=== PATIENT | male | born 1970 | race Caucasian/White ===

== ENCOUNTER 2021-12-07 06:52 | Inpatient (IN) | payer BC ==
[2021-12-06 12:56] LABS: BASOPHILS % 0.4 % (0.0-1.0); EOSINOPHILS # (AUTO) 0.7 (0.0-0.4); EOSINOPHILS % 8.7 % (0.0-6.0); HEMATOCRIT 24.5 % (38.2-49.6); HEMOGLOBIN 7.7 g/dL (14.0-18.0); LYMPHOCYTES # (AUTO) 1.4 (1.0-3.2); LYMPHOCYTES % 18.5 % (18.0-39.1); MEAN CORPUSCULAR HEMOGLOBIN 30.9 pg (28-32); MEAN CORPUSCULAR HGB CONC 31.4 g/dL (31-35); MEAN CORPUSCULAR VOLUME 98.4 fL (81-99); MONOCYTES # (AUTO) 0.8 (0.2-0.8); MONOCYTES % 10.4 % (4.4-11.3); NEUTROPHILS # (AUTO) 4.6 (2.1-6.9); NEUTROPHILS % 61.6 % (38.7-80.0); PLATELET COUNT 101 x10e3/uL (140-360); RED BLOOD COUNT 2.49 x10e6/uL (4.3-5.7); RED CELL DISTRIBUTION WIDTH 17.6 % (11.7-14.4)
[2021-12-06 13:05] LABS: INR 1.28; PARTIAL THROMBOPLASTIN TIME 42.6 seconds (23.8-35.5); PROTHROMBIN TIME 16.9 seconds (11.9-14.5)
[2021-12-06 13:11] LABS: ALBUMIN 2.6 g/dL (3.5-5.0); ALBUMIN/GLOBULIN RATIO 0.5 (0.8-2.0); CALCIUM 9.1 mg/dL (8.4-10.2); CREATININE, SERUM 1.32 mg/dL (0.72-1.25)
[~2021-12-07] VITALS: Ht 180.3 cm; Wt 66.2 kg
[~2021-12-07 06:52] MED LIST: CARAFATE1 GM PO; CARAFATE1 GM/10 ML PO; CEFUROXIME PO; CELECOXIB 200 MG CAP ONE; CIPRO500 MG PO; CRESTOR10 MG PO; DEXAMETHASONE SOD PHOS 10 MG/1 ML VIAL ONE; FUROSEMIDE40 MG PO; GABAPENTIN 300 MG CAP ONE; HYDROCODON-ACE1 EA12 PO; HYDROCODONE; KRISTALOSE20 GM PO; MIDODRINE HCL5 MG PO; OMEPRAZOLE40 MG PO; SODIUM CHLORIDE 0.9% 250ML 250 ML ONE; SPIRONOLACTONE25 MG PO; XIFAXAN550 MG PO; ZOLPIDEM TARTRAT5 MG PO
[2021-12-07] MEDS ORDERED: ROPIVACAINE 246.25 MG, EPINEPHRINE HCL 1:1000 1ML 0.5 MG, CLONIDINE HCL 0.08 MG, KETORO... INJ ONE ×5 (07:30)
[2021-12-07] MEDS ORDERED: TRANEXAMIC ACID 1,000 MG/10 ML ML ONE (10:14)
[2021-12-07] MEDS ORDERED: SODIUM CHLORIDE 0.9% 500ML 500 ML ONE (10:14)
[2021-12-07] MEDS ORDERED: Vancomycin IV 1,000 MG ONE (10:15)
[2021-12-07] MEDS ORDERED: DOCUSATE SODIUM 100 MG CAP PO PRN (12:15)
[2021-12-07] MEDS ORDERED: ONDANSETRON HCL INJ 2MG/ML 2ML 2 MG/ML VIAL IV PRN (12:15)
[2021-12-07] MEDS ORDERED: DIPHENHYDRAMINE HCL INJ 50 MG/ML VIAL IV PRN (12:15)
[2021-12-07] MEDS ORDERED: KETOROLAC TROMETHAMINE 30 MG/ML VIAL IV PRN (12:15)
[2021-12-07] MEDS ORDERED: HYDROCODONE/APAP 5MG-325MG TAB PO PRN (12:15)
[2021-12-07] MEDS ORDERED: LIDOCAINE HCL 2% LOCAL INJ 5 ML SDV VIAL INJ ONE (12:22)
[2021-12-07] MEDS ORDERED: GLYCOPYRROLATE INJ 0.2 MG/ML VIAL ONE (12:22)
[2021-12-07] MEDS ORDERED: POVIDONE IODINE 0.05% 0.05 % ML PO ONE (12:22)
[2021-12-07] MEDS ORDERED: PROPOFOL IV EMULSION 10 MG/ML 20 ML VIAL ONE (12:22)
[2021-12-07] MEDS ORDERED: ROCURONIUM BROMIDE 10 MG/ML 5ML VIAL IV ONE (12:22)
[2021-12-07] MEDS ORDERED: DESFLURANE 240 ML BTL INH ONE (12:22)
[2021-12-07] MEDS ORDERED: NEOSTIGMINE 1 MG/ML 10ML VIAL ONE (12:22)
[2021-12-07] MEDS ORDERED: ONDANSETRON HCL INJ 2MG/ML 2ML 2 MG/ML VIAL ONE (12:22)
[2021-12-07] MEDS ORDERED: DEXAMETHASONE SOD PHOS INJ 4 MG/ML SDV ONE (12:22)
[2021-12-07] MEDS ORDERED: SUGAMMADEX SODIUM 200 MG/2 ML VIAL IV ONE (12:28)
[2021-12-07] MEDS ORDERED: FENTANYL CITRATE/PF 100MCG/2 ML INJ ONE ×2 (12:42→13:32)
[2021-12-07] MEDS: HYDROCODONE/APAP 7.5MG-325MG 1 EA TAB PO PRN (14:14)
[2021-12-07 14:41] VITALS: BP 122/55
[2021-12-07 14:47] VITALS: BP 122/55
[2021-12-07] MEDS: SODIUM CHLORIDE 0.9% 1000ML 1,000 ML IV SCH (15:24)
[2021-12-07 15:54] VITALS: BP 102/46
[2021-12-07] MEDS: Cefazolin 1 GM in SODIUM CHLORIDE 0.9% 50ML 50 ML IV SCH (17:21)
[2021-12-07] MEDS: CELECOXIB 200 MG CAP PO SCH (17:21)
[2021-12-07 20:00] VITALS: BP 99/46
[2021-12-07] MEDS ORDERED: ZOLPIDEM TARTRATE 5 MG TAB PO PRN (21:00)
[2021-12-08] VITALS (7 sets, daily range): BP systolic 87–98; BP diastolic 41–49
[2021-12-08] MEDS: HYDROCODONE/APAP 7.5MG-325MG 1 EA TAB PO PRN (01:40)
[2021-12-08] MEDS: Cefazolin 1 GM in SODIUM CHLORIDE 0.9% 50ML 50 ML IV SCH ×2 (01:48→10:00)
[2021-12-08] MEDS: SODIUM CHLORIDE 0.9% 1000ML 1,000 ML IV SCH ×3 (03:32→20:50)
[2021-12-08 07:13] LABS: LYMPHOCYTES # (AUTO) 0.5 (1.0-3.2); LYMPHOCYTES % 5.5 % (18.0-39.1); MEAN CORPUSCULAR HEMOGLOBIN 30.4 pg (28-32); MEAN CORPUSCULAR HGB CONC 32.7 g/dL (31-35); MEAN CORPUSCULAR VOLUME 92.9 fL (81-99); MONOCYTES # (AUTO) 0.5 (0.2-0.8); NEUTROPHILS # (AUTO) 8.4 (2.1-6.9); NEUTROPHILS % 88.9 % (38.7-80.0); RED BLOOD COUNT 2.24 x10e6/uL (4.3-5.7)
[2021-12-08 07:24] LABS: HEMATOCRIT 20.8 % (38.2-49.6); HEMOGLOBIN 6.8 g/dL (14.0-18.0)
[2021-12-08 07:25] LABS: PLATELET COUNT 81 x10e3/uL (140-360)
[2021-12-08] MEDS: CELECOXIB 200 MG CAP PO SCH ×2 (09:00→17:00)
[2021-12-08] MEDS ORDERED: SODIUM CHLORIDE 0.9% 250ML 250 ML ONE ×2 (12:04→21:40)
[2021-12-08] MEDS ORDERED: ONDANSETRON HCL 4 MG ORAL DISINTEGRATING TAB PO PRN (14:15)
[2021-12-08] MEDS: ENOXAPARIN 30 MG/0.3 ML SYR SC SCH (17:00)
[2021-12-09] VITALS (8 sets, daily range): BP systolic 96–115; BP diastolic 50–56
[2021-12-09] MEDS: SODIUM CHLORIDE 0.9% 1000ML 1,000 ML IV SCH ×2 (05:09→15:45)
[2021-12-09 05:47] LABS: HEMATOCRIT 25.5 % (38.2-49.6); HEMOGLOBIN 8.5 g/dL (14.0-18.0)
[2021-12-09] MEDS: CELECOXIB 200 MG CAP PO SCH (09:10)
[2021-12-09 09:38] LABS: BASOPHILS % 0.1 % (0.0-1.0); HEMATOCRIT 24.8 % (38.2-49.6); HEMOGLOBIN 8.3 g/dL (14.0-18.0); LYMPHOCYTES # (AUTO) 0.8 (1.0-3.2); LYMPHOCYTES % 6.5 % (18.0-39.1); MEAN CORPUSCULAR HEMOGLOBIN 30.6 pg (28-32); MEAN CORPUSCULAR HGB CONC 33.5 g/dL (31-35); MEAN CORPUSCULAR VOLUME 91.5 fL (81-99); MONOCYTES % 8.2 % (4.4-11.3); NEUTROPHILS % 84.9 % (38.7-80.0); PLATELET COUNT 71 x10e3/uL (140-360); RED BLOOD COUNT 2.71 x10e6/uL (4.3-5.7); RED CELL DISTRIBUTION WIDTH 16.9 % (11.7-14.4)
[2021-12-09] MEDS ORDERED: CALCIUM CARBONATE 500 MG CHEWABLE TABS PO ONE (10:30)
[2021-12-09] MEDS: OMEPRAZOLE 20 MG CAP PO SCH (10:30)
[2021-12-09] MEDS: ENOXAPARIN 30 MG/0.3 ML SYR SC SCH (17:29)
[2021-12-09] MEDS: HYDROCODONE/APAP 7.5MG-325MG 1 EA TAB PO PRN (23:31)
[2021-12-10] VITALS: BP_SYST 102; BP_SYST 135; BP_DIAS 48; BP_DIAS 70
[2021-12-10] MEDS: SODIUM CHLORIDE 0.9% 1000ML 1,000 ML IV SCH (01:45)
[2021-12-10 04:00] VITALS: BP_SYST 113; BP_SYST 96; BP_DIAS 49; BP_DIAS 51
[2021-12-10 05:57] LABS: EOSINOPHILS % 0.3 % (0.0-6.0); HEMATOCRIT 24.6 % (38.2-49.6); HEMOGLOBIN 8.1 g/dL (14.0-18.0); LYMPHOCYTES # (AUTO) 1.2 (1.0-3.2); LYMPHOCYTES % 11.9 % (18.0-39.1); MEAN CORPUSCULAR HEMOGLOBIN 30.5 pg (28-32); MEAN CORPUSCULAR HGB CONC 32.9 g/dL (31-35); MEAN CORPUSCULAR VOLUME 92.5 fL (81-99); MONOCYTES % 10.3 % (4.4-11.3); NEUTROPHILS # (AUTO) 7.7 (2.1-6.9); NEUTROPHILS % 77.1 % (38.7-80.0); PLATELET COUNT 79 x10e3/uL (140-360); RED BLOOD COUNT 2.66 x10e6/uL (4.3-5.7); RED CELL DISTRIBUTION WIDTH 17.3 % (11.7-14.4)
[2021-12-10] MEDS: OMEPRAZOLE 20 MG CAP PO SCH (08:41)
[2021-12-10 08:44] VITALS: BP 101/57
[2021-12-10 09:01] VITALS: BP 101/57
== END 2021-12-10 10:58 | disposition home health service (06) | DRG 470 ==
LOC: OR 06:52 → PACU V 12:07 → MED/SURG 13:55 → OBSVTOIN 12-09 11:03
PROVIDERS: ADMIT Specialist; ATTEND Specialist
PROC: 30233N1 Transfusion of Nonautologous Red Blood Cells into Peripheral Vein, Percutaneous Approach (ICD-10-PCS; 2021-12-07)
PROC: 0SR904A Replacement of Right Hip Joint with Ceramic on Polyethylene Synthetic Substitute, Uncemented, Open Approach (ICD-10-PCS; principal; 2021-12-07 10:30)
DX: M16.11 Unilateral primary osteoarthritis, right hip (principal); M87.851 Other osteonecrosis, right femur; D62 Acute posthemorrhagic anemia; I85.00 Esophageal varices without bleeding; E87.1 Hypo-osmolality and hyponatremia; K72.10 Chronic hepatic failure without coma; K74.60 Unspecified cirrhosis of liver; Z20.822 Contact with and (suspected) exposure to COVID-19; E88.09 Other disorders of plasma-protein metabolism, not elsewhere classified; D89.0 Polyclonal hypergammaglobulinemia; D69.6 Thrombocytopenia, unspecified; K21.9 Gastro-esophageal reflux disease without esophagitis
CPT/HCPCS: 36415; 72170; 80053; 85014; 85018; 85025; 85384; 85610; 85730; 86850; 86870; 86880; 86900; 86905; 86920; 86922; 94799; 97139; 99001; C1713; C1776; G0378; J0171; J0690; J1100; J1650; J1885; J2001; J2405; J2710; J2795; J3010; J3370; J7030; J7040; J7050; P9016; U0002

== ENCOUNTER → 2022-01-12 | Day surgery (SDC) | payer BC ==
[2022-01-10 13:47] LABS: BASOPHILS % 0.2 % (0.0-1.0); EOSINOPHILS # (AUTO) 0.2 (0.0-0.4); EOSINOPHILS % 4.1 % (0.0-6.0); LYMPHOCYTES # (AUTO) 0.7 (1.0-3.2); MEAN CORPUSCULAR HEMOGLOBIN 31.9 pg (28-32); MEAN CORPUSCULAR HGB CONC 33.7 g/dL (31-35); MEAN CORPUSCULAR VOLUME 94.9 fL (81-99); MONOCYTES % 22.1 % (4.4-11.3); NEUTROPHILS # (AUTO) 2.5 (2.1-6.9); NEUTROPHILS % 57.1 % (38.7-80.0); PLATELET COUNT 59 x10e3/uL (140-360); RED BLOOD COUNT 2.16 x10e6/uL (4.3-5.7)
[2022-01-10 13:56] LABS: HEMATOCRIT 20.5 % (38.2-49.6); HEMOGLOBIN 6.9 g/dL (14.0-18.0)
[2022-01-10 13:58] LABS: INR 1.31; PROTHROMBIN TIME 17.4 seconds (11.9-14.5)
[2022-01-10 13:59] LABS: PARTIAL THROMBOPLASTIN TIME 48.3 seconds (23.8-35.5)
[2022-01-10 14:05] LABS: ALBUMIN/GLOBULIN RATIO 0.5 (0.8-2.0); ANION GAP 11.1 mmol/L (8-16); CALCIUM 8.4 mg/dL (8.4-10.2); CREATININE, SERUM 1.73 mg/dL (0.72-1.25); POTASSIUM 4.1 mmol/L (3.5-5.1)
[2022-01-10 17:09] LABS: EOSINOPHILS % (MANUAL) 5 % (0-7); HYPOCHROMASIA SLIGHT; LYMPHOCYTES % (MANUAL) 11 % (19-48); MONOCYTES % (MANUAL) 18 % (3.4-9.0); NEUTROPHILS % (MANUAL) 66 % (40-74); PLATELET ESTIMATE MARKEDLY DECREASED; PLATELET MORPHOLOGY COMMENT NORMAL; RBC MORPHOLOGY COMMENT NORMAL
[~2022-01-12] MED LIST changes: +B&O 60MG R/S 60 MG SUPP PR ONE; +CEFTRIAXONE 1 GM VIAL ONE; -CELECOXIB 200 MG CAP ONE; -DEXAMETHASONE SOD PHOS 10 MG/1 ML VIAL ONE; +DEXAMETHASONE SOD PHOS INJ 4 MG/ML SDV ONE; +FENTANYL CITRATE/PF 100MCG/2 ML INJ ONE; -GABAPENTIN 300 MG CAP ONE; +IOPAMIDOL 300MG/ML 50ML INFUS..BTL IV ONE; +LIDOCAINE HCL 2% LOCAL INJ 5 ML SDV VIAL INJ ONE; +MULTI-VITAMIN1 EACH PO; +ONDANSETRON HCL INJ 2MG/ML 2ML 2 MG/ML VIAL ONE; +POVIDONE IODINE 0.05% 0.05 % ML PO ONE; +PROPOFOL IV EMULSION 10 MG/ML 20 ML VIAL ONE; +SEVOFLURANE INHAL SOLN 250 ML PEN BTL ONE; +SODIUM CHLORIDE 0.9% 50ML 50 ML ONE
[2022-01-12 12:40] VITALS: BP 110/53
== END | disposition home or self-care (01) ==
LOC: OR 06:15
PROVIDERS: ATTEND Urology
DX: N20.0 Calculus of kidney (principal); Z46.6 Encounter for fitting and adjustment of urinary device; Q63.1 Lobulated, fused and horseshoe kidney; N13.30 Unspecified hydronephrosis; N40.0 Benign prostatic hyperplasia without lower urinary tract symptoms; N32.89 Other specified disorders of bladder; D69.6 Thrombocytopenia, unspecified; D68.9 Coagulation defect, unspecified; K70.30 Alcoholic cirrhosis of liver without ascites; K21.9 Gastro-esophageal reflux disease without esophagitis; I10 Essential (primary) hypertension; E78.5 Hyperlipidemia, unspecified; K27.9 Peptic ulcer, site unspecified, unspecified as acute or chronic, without hemorrhage or perforation; Z01.812 Encounter for preprocedural laboratory examination; Z20.822 Contact with and (suspected) exposure to COVID-19; Z79.899 Other long term (current) drug therapy; Z87.891 Personal history of nicotine dependence; Z86.73 Personal history of transient ischemic attack (TIA), and cerebral infarction without residual deficits
CPT/HCPCS: 36415; 52356; 74018; 74420; 80053; 85025; 85610; 85730; 86850; 86900; 86920 ×2; 86922; 88300; C1758; C1766; C1769; C2617; J0696; J1100; J2001; J2405; J2704; J3010; J7050; P9016; P9017; P9034; Q9967; U0002

== ENCOUNTER 2022-01-30 17:22 | Observation (INO) | payer BC ==
[~2022-01-30] VITALS: Ht 180.3 cm; Wt 68.0 kg
[~2022-01-30 17:22] MED LIST changes: -B&O 60MG R/S 60 MG SUPP PR ONE; -CEFTRIAXONE 1 GM VIAL ONE; +CEPHALEXIN500 MG PO; -DEXAMETHASONE SOD PHOS INJ 4 MG/ML SDV ONE; -FENTANYL CITRATE/PF 100MCG/2 ML INJ ONE; -IOPAMIDOL 300MG/ML 50ML INFUS..BTL IV ONE; -LIDOCAINE HCL 2% LOCAL INJ 5 ML SDV VIAL INJ ONE; -ONDANSETRON HCL INJ 2MG/ML 2ML 2 MG/ML VIAL ONE; +POTASSIUM CHLO10 ME1 PO; -POVIDONE IODINE 0.05% 0.05 % ML PO ONE; -PROPOFOL IV EMULSION 10 MG/ML 20 ML VIAL ONE; -SEVOFLURANE INHAL SOLN 250 ML PEN BTL ONE; -SODIUM CHLORIDE 0.9% 250ML 250 ML ONE; -SODIUM CHLORIDE 0.9% 50ML 50 ML ONE
[2022-01-30 18:06] LABS: BASOPHILS % 0.3 % (0.0-1.0); EOSINOPHILS # (AUTO) 0.1 (0.0-0.4); EOSINOPHILS % 1.4 % (0.0-6.0); HEMATOCRIT 21.9 % (38.2-49.6); HEMOGLOBIN 7.4 g/dL (14.0-18.0); LYMPHOCYTES # (AUTO) 0.6 (1.0-3.2); LYMPHOCYTES % 8.9 % (18.0-39.1); MEAN CORPUSCULAR HEMOGLOBIN 30.7 pg (28-32); MEAN CORPUSCULAR HGB CONC 33.8 g/dL (31-35); MEAN CORPUSCULAR VOLUME 90.9 fL (81-99); MONOCYTES # (AUTO) 0.8 (0.2-0.8); MONOCYTES % 11.4 % (4.4-11.3); NEUTROPHILS # (AUTO) 5.2 (2.1-6.9); NEUTROPHILS % 77.2 % (38.7-80.0); RED BLOOD COUNT 2.41 x10e6/uL (4.3-5.7); RED CELL DISTRIBUTION WIDTH 19.4 % (11.7-14.4)
[2022-01-30 18:08] LABS: PLATELET COUNT 44 x10e3/uL (140-360)
[2022-01-30 18:16] LABS: ALBUMIN 2.2 g/dL (3.5-5.0); ALBUMIN/GLOBULIN RATIO 0.5 (0.8-2.0); ANION GAP 8.7 mmol/L (8-16); CALCIUM 7.6 mg/dL (8.4-10.2); CREATININE, SERUM 1.23 mg/dL (0.72-1.25); INR 1.87; POTASSIUM 3.7 mmol/L (3.5-5.1)
[2022-01-30] MEDS ORDERED: SODIUM CHLORIDE 0.9% 250ML 250 ML IV ONE (19:00)
[2022-01-30] MEDS ORDERED: SODIUM CHLORIDE FLUSH 10 ML SYR INJ PRN (19:00)
[2022-01-30] MEDS ORDERED: ONDANSETRON HCL INJ 2MG/ML 2ML 2 MG/ML VIAL IV PRN (19:00)
[2022-01-30 19:03] LABS: COLOR,URINE YELLOW (YELLOW); KETONES,URINE NEGATIVE (NEGATIVE); LEUKOCYTE ESTERASE ,URINE 1+ (NEGATIVE); NITRITE,URINE NEGATIVE (NEGATIVE); PROTEIN,URINE DIPSTICK NEGATIVE (NEGATIVE); URINE UROBILINOGEN 0.2 mg/dL (0.2 - 1)
[2022-01-30 19:04] LABS: CLARITY,URINE CLOUDY (CLEAR)
[2022-01-30 19:14] LABS: CREATINE KINASE MB 0.7 ng/mL (0-5.0)
[2022-01-30 19:20] LABS: WBC,URINE (MAN) 21-50 /HPF (0-5)
[2022-01-30 19:21] LABS: BACTERIA,URINE FEW /HPF; EPITHELIAL CELLS,URINE FEW /LPF; RBC,URINE >50 /HPF (0-5)
[2022-01-30] MEDS ORDERED: SODIUM CHLORIDE 0.9% 250ML 250 ML ONE (20:37)
[2022-01-30 20:43] VITALS: BP 96/48
[2022-01-30] MEDS ORDERED: SIMVASTATIN 40 MG TAB PO SCH (21:00)
[2022-01-30] MEDS: MIDODRINE HCL 5 MG TABLET PO SCH (21:25)
[2022-01-30 21:39] VITALS: BP 96/48
[2022-01-30 21:46] VITALS: BP 96/48
[2022-01-31 00:28] VITALS: BP 94/39
[2022-01-31 05:41] LABS: HEMATOCRIT 23.4 % (38.2-49.6); MEAN CORPUSCULAR HEMOGLOBIN 30.5 pg (28-32); MEAN CORPUSCULAR HGB CONC 34.2 g/dL (31-35); MEAN CORPUSCULAR VOLUME 89.3 fL (81-99); RED BLOOD COUNT 2.62 x10e6/uL (4.3-5.7); RED CELL DISTRIBUTION WIDTH 18.6 % (11.7-14.4)
[2022-01-31 06:03] LABS: ALBUMIN 2.1 g/dL (3.5-5.0); ALBUMIN/GLOBULIN RATIO 0.5 (0.8-2.0); ANION GAP 9.6 mmol/L (8-16); CALCIUM 7.9 mg/dL (8.4-10.2); CREATININE, SERUM 1.18 mg/dL (0.72-1.25); POTASSIUM 3.6 mmol/L (3.5-5.1)
[2022-01-31 06:04] LABS: PLATELET COUNT 39 x10e3/uL (140-360)
[2022-01-31] MEDS ORDERED: ACETAMINOPHEN 325 MG TAB PO ONE (06:45)
[2022-01-31] MEDS ORDERED: PANTOPRAZOLE SOD 40 MG TABEC PO SCH (07:30)
[2022-01-31 08:00] VITALS: BP 94/39
[2022-01-31 08:27] VITALS: BP 90/41
[2022-01-31] MEDS ORDERED: SPIRONOLACTONE 25 MG TAB PO SCH (09:00)
[2022-01-31] MEDS: LACTULOSE SYRUP 20 GM/30 ML UDC PO SCH ×2 (09:00→16:20)
[2022-01-31] MEDS: MIDODRINE HCL 5 MG TABLET PO SCH ×2 (09:00→15:00)
[2022-01-31] MEDS ORDERED: MULTIVITAMINS/MINERALS TAB PO SCH (09:00)
[2022-01-31 11:26] LABS: LYMPHOCYTES % (MANUAL) 5 % (19-48); MONOCYTES % (MANUAL) 11 % (3.4-9.0); NEUTROPHILS % (MANUAL) 84 % (40-74); PLATELET ESTIMATE MARKEDLY DECREASED; PLATELET MORPHOLOGY COMMENT NORMAL; RBC MORPHOLOGY COMMENT NORMAL
[2022-01-31 11:42] VITALS: BP_SYST 46
[2022-01-31] MEDS ORDERED: SODIUM CHLORIDE 0.9% 250ML 250 ML ONE (12:57)
[2022-01-31 15:45] VITALS: BP 98/55
[2022-02-07] MEDS ORDERED: SODIUM CHLORIDE1 GM PO (17:46)
[2022-02-07] MEDS ORDERED: FLOMAX0.4 MG PO (17:46)
== END 2022-01-31 16:41 | disposition home or self-care (01) ==
LOC: ER 17:27 → ERHOLD 18:51 → MED/SURG2 19:35
PROVIDERS: ADMIT Internal Medicine; ATTEND Internal Medicine
DX: K70.31 Alcoholic cirrhosis of liver with ascites (principal); D63.8 Anemia in other chronic diseases classified elsewhere; E87.1 Hypo-osmolality and hyponatremia; N18.9 Chronic kidney disease, unspecified; Z86.73 Personal history of transient ischemic attack (TIA), and cerebral infarction without residual deficits; K21.9 Gastro-esophageal reflux disease without esophagitis; E78.5 Hyperlipidemia, unspecified; I95.89 Other hypotension; Z96.652 Presence of left artificial knee joint
CPT/HCPCS: 36415 ×2; 36430; 71045; 80053 ×2; 80320; 81001; 82140; 82550; 82553; 83605; 84484; 85007; 85025; 85027; 85610; 85730; 86850; 86900; 86920; 87040; 87071; 87186; 87205; 93005; 94799 ×2; 97161; 99284; G0378 ×2; J7050 ×2; P9016 ×2; S0164; U0002

== ENCOUNTER 2022-02-23 13:08 | Inpatient (IN) | payer BC ==
[~2022-02-23] VITALS: Ht 180.3 cm; Wt 68.0 kg
[~2022-02-23 13:08] MED LIST changes: +FLOMAX0.4 MG PO; +KEFLEX125 MG/5 M PO; +SODIUM CHLORIDE1 GM PO; +ZYVOX100 MG/5 M PO; +ZYVOX600 MG PO
[2022-02-23 14:39] LABS: BASOPHILS % 0.2 % (0.0-1.0); EOSINOPHILS # (AUTO) 0.2 (0.0-0.4); EOSINOPHILS % 3.5 % (0.0-6.0); LYMPHOCYTES # (AUTO) 0.8 (1.0-3.2); LYMPHOCYTES % 18.2 % (18.0-39.1); MEAN CORPUSCULAR HEMOGLOBIN 31.3 pg (28-32); MEAN CORPUSCULAR HGB CONC 32.2 g/dL (31-35); MEAN CORPUSCULAR VOLUME 97.2 fL (81-99); MONOCYTES # (AUTO) 0.7 (0.2-0.8); MONOCYTES % 14.5 % (4.4-11.3); NEUTROPHILS # (AUTO) 2.9 (2.1-6.9); NEUTROPHILS % 63.4 % (38.7-80.0); RED BLOOD COUNT 1.79 x10e6/uL (4.3-5.7); RED CELL DISTRIBUTION WIDTH 21.5 % (11.7-14.4)
[2022-02-23 14:41] LABS: HEMATOCRIT 17.4 % (38.2-49.6); HEMOGLOBIN 5.6 g/dL (14.0-18.0); PLATELET COUNT 25 x10e3/uL (140-360)
[2022-02-23 14:58] LABS: ALBUMIN 1.8 g/dL (3.5-5.0); ALBUMIN/GLOBULIN RATIO 0.4 (0.8-2.0); ANION GAP 12.6 mmol/L (8-16); CALCIUM 7.5 mg/dL (8.4-10.2); CREATININE, SERUM 1.14 mg/dL (0.72-1.25); POTASSIUM 3.6 mmol/L (3.5-5.1)
[2022-02-23 14:59] LABS: LIPASE 95 U/L (8-78)
[2022-02-23] MEDS ORDERED: SODIUM CHLORIDE 0.9% 250ML 250 ML IV ONE (15:15)
[2022-02-23 16:10] LABS: EOSINOPHILS % (MANUAL) 2 % (0-7); HYPOCHROMASIA SLIGHT; LYMPHOCYTES % (MANUAL) 12 % (19-48); MONOCYTES % (MANUAL) 13 % (3.4-9.0); NEUTROPHILS % (MANUAL) 71 % (40-74); PLATELET ESTIMATE MARKEDLY DECREASED; PLATELET MORPHOLOGY COMMENT NORMAL; RBC MORPHOLOGY COMMENT NORMAL
[2022-02-23] MEDS ORDERED: TAMSULOSIN HCL 0.4 MG CAP PO PRN (18:00)
[2022-02-23] MEDS: CEPHALEXIN 500 MG CAP PO SCH ×2 (20:13→22:48)
[2022-02-23 21:29] VITALS: BP 107/46
[2022-02-23 22:16] VITALS: BP 107/46
[2022-02-23 22:28] VITALS: BP 107/46
[2022-02-23] MEDS: SIMVASTATIN 20 MG TAB PO SCH (22:48)
[2022-02-23] MEDS ORDERED: SODIUM CHLORIDE 0.9% 250ML 250 ML ONE (23:09)
[2022-02-24] VITALS (7 sets, daily range): BP systolic 94–106; BP diastolic 40–45
[2022-02-24] MEDS ORDERED: SODIUM CHLORIDE 0.9% 250ML 250 ML ONE ×2 (03:36→20:00)
[2022-02-24] MEDS: MIDODRINE HCL 5 MG TABLET PO SCH ×3 (08:30→21:33)
[2022-02-24] MEDS: FUROSEMIDE 40 MG TAB PO SCH (09:00)
[2022-02-24] MEDS: PANTOPRAZOLE SOD 40 MG TABEC PO SCH (09:00)
[2022-02-24] MEDS: MULTIVITAMINS/MINERALS TAB PO SCH (09:00)
[2022-02-24] MEDS: RIFAXIMIN 550 MG TABLET PO SCH ×2 (09:00→17:47)
[2022-02-24] MEDS: CEPHALEXIN 500 MG CAP PO SCH ×4 (09:00→21:33)
[2022-02-24] MEDS: LINEZOLID 600 MG TAB PO SCH ×2 (09:00→17:47)
[2022-02-24] MEDS: LACTULOSE SYRUP 20 GM/30 ML UDC PO SCH ×2 (09:00→17:47)
[2022-02-24] MEDS: SODIUM CHLORIDE 1 GM TAB PO SCH ×2 (09:00→17:47)
[2022-02-24] MEDS: POTASSIUM CHLORIDE 10MEQ EA PO SCH (09:00)
[2022-02-24 09:04] LABS: BASOPHILS % 0.2 % (0.0-1.0); EOSINOPHILS # (AUTO) 0.3 (0.0-0.4); EOSINOPHILS % 5.5 % (0.0-6.0); LYMPHOCYTES # (AUTO) 1.1 (1.0-3.2); MEAN CORPUSCULAR HEMOGLOBIN 31.9 pg (28-32); MEAN CORPUSCULAR VOLUME 93.9 fL (81-99); MONOCYTES # (AUTO) 0.5 (0.2-0.8); MONOCYTES % 9.9 % (4.4-11.3); RED BLOOD COUNT 2.13 x10e6/uL (4.3-5.7); RED CELL DISTRIBUTION WIDTH 18.9 % (11.7-14.4)
[2022-02-24 09:11] LABS: HEMOGLOBIN 6.8 g/dL (14.0-18.0)
[2022-02-24 09:12] LABS: PLATELET COUNT 24 x10e3/uL (140-360)
[2022-02-24 09:22] LABS: ANION GAP 9.7 mmol/L (8-16); CALCIUM 7.4 mg/dL (8.4-10.2); CREATININE, SERUM 0.91 mg/dL (0.72-1.25); POTASSIUM 3.7 mmol/L (3.5-5.1)
[2022-02-24 11:38] LABS: EOSINOPHILS % (MANUAL) 4 % (0-7); LYMPHOCYTES % (MANUAL) 7 % (19-48); MONOCYTES % (MANUAL) 9 % (3.4-9.0); NEUTROPHILS % (MANUAL) 80 % (40-74); PLATELET ESTIMATE MARKEDLY DECREASED; PLATELET MORPHOLOGY COMMENT NORMAL; RBC MORPHOLOGY COMMENT NORMAL
[2022-02-24] MEDS ORDERED: SODIUM CHLORIDE 0.9% 250ML 250 ML IV ONE (15:00)
[2022-02-24] MEDS: SIMVASTATIN 20 MG TAB PO SCH (21:33)
[2022-02-25 00:11] VITALS: BP 100/49
[2022-02-25 05:00] VITALS: BP 103/41
[2022-02-25] MEDS: MIDODRINE HCL 5 MG TABLET PO SCH ×2 (05:23→12:23)
[2022-02-25 05:51] LABS: BASOPHILS % 0.4 % (0.0-1.0); EOSINOPHILS # (AUTO) 0.3 (0.0-0.4); EOSINOPHILS % 4.7 % (0.0-6.0); HEMATOCRIT 24.8 % (38.2-49.6); HEMOGLOBIN 8.4 g/dL (14.0-18.0); LYMPHOCYTES # (AUTO) 0.9 (1.0-3.2); LYMPHOCYTES % 16.8 % (18.0-39.1); MEAN CORPUSCULAR HEMOGLOBIN 30.7 pg (28-32); MEAN CORPUSCULAR HGB CONC 33.9 g/dL (31-35); MEAN CORPUSCULAR VOLUME 90.5 fL (81-99); MONOCYTES # (AUTO) 0.8 (0.2-0.8); MONOCYTES % 13.6 % (4.4-11.3); NEUTROPHILS # (AUTO) 3.6 (2.1-6.9); NEUTROPHILS % 64.1 % (38.7-80.0); PLATELET COUNT 53 x10e3/uL (140-360); RED BLOOD COUNT 2.74 x10e6/uL (4.3-5.7); RED CELL DISTRIBUTION WIDTH 19.4 % (11.7-14.4)
[2022-02-25 06:10] LABS: INR 1.41; PROTHROMBIN TIME 18.4 seconds (11.9-14.5)
[2022-02-25 07:50] VITALS: BP 98/58
[2022-02-25 08:00] VITALS: BP 98/58
[2022-02-25] MEDS: LACTULOSE SYRUP 20 GM/30 ML UDC PO SCH ×2 (09:00→11:35)
[2022-02-25] MEDS: POTASSIUM CHLORIDE 10MEQ EA PO SCH (11:35)
[2022-02-25] MEDS: CEPHALEXIN 500 MG CAP PO SCH ×2 (11:35→12:26)
[2022-02-25] MEDS: RIFAXIMIN 550 MG TABLET PO SCH (11:36)
[2022-02-25] MEDS: LINEZOLID 600 MG TAB PO SCH (11:36)
[2022-02-25] MEDS: SODIUM CHLORIDE 1 GM TAB PO SCH (11:36)
[2022-02-25] MEDS: PANTOPRAZOLE SOD 40 MG TABEC PO SCH (11:36)
[2022-02-25] MEDS: MULTIVITAMINS/MINERALS TAB PO SCH (11:36)
[2022-02-25] MEDS: FUROSEMIDE 40 MG TAB PO SCH (11:38)
[2022-02-25] MEDS ORDERED: DIPHENHYDRAMINE HCL 25 MG CAP PO PRN (12:00)
== END 2022-02-25 15:30 | disposition home health service (06) | DRG 433 ==
LOC: ER 13:15 → ERHOLD 15:17 → MED/SURG3 19:49
PROC: 30233N1 Transfusion of Nonautologous Red Blood Cells into Peripheral Vein, Percutaneous Approach (ICD-10-PCS; 2022-02-23)
PROC: 30233R1 Transfusion of Nonautologous Platelets into Peripheral Vein, Percutaneous Approach (ICD-10-PCS; principal; 2022-02-24)
DX: K70.30 Alcoholic cirrhosis of liver without ascites (principal); K76.6 Portal hypertension; I85.10 Secondary esophageal varices without bleeding; E44.1 Mild protein-calorie malnutrition; D69.59 Other secondary thrombocytopenia; Z20.822 Contact with and (suspected) exposure to COVID-19; D50.0 Iron deficiency anemia secondary to blood loss (chronic); R77.1 Abnormality of globulin; D73.1 Hypersplenism; D63.8 Anemia in other chronic diseases classified elsewhere; Z68.20 Body mass index [BMI] 20.0-20.9, adult
CPT/HCPCS: 36415; 71045; 80048; 80053; 83690; 84484; 85025; 85384; 85610; 86850; 86900; 86920; 93005; 94799; 99251; 99284; J7050; P9016; P9034; U0002

== ENCOUNTER 2022-03-10 12:37 | Inpatient (IN) | payer BC ==
[~2022-03-10] VITALS: Ht 180.3 cm; Wt 92.8 kg
[2022-03-10] VITALS (21 sets, daily range): BP systolic 77–95; BP diastolic 37–49
[2022-03-10] MEDS ORDERED: SODIUM CHLORIDE 0.9% 500ML 500 ML IV ONE (13:15)
[2022-03-10] MEDS ORDERED: MIDODRINE HCL 5 MG TABLET PO SCH (13:15)
[2022-03-10 13:20] LABS: BASOPHILS % 0.3 % (0.0-1.0); EOSINOPHILS # (AUTO) 0.3 (0.0-0.4); EOSINOPHILS % 2.9 % (0.0-6.0); HEMATOCRIT 20.2 % (38.2-49.6); LYMPHOCYTES # (AUTO) 1.4 (1.0-3.2); LYMPHOCYTES % 13.9 % (18.0-39.1); MEAN CORPUSCULAR HEMOGLOBIN 32.4 pg (28-32); MEAN CORPUSCULAR HGB CONC 32.7 g/dL (31-35); MONOCYTES # (AUTO) 1.1 (0.2-0.8); MONOCYTES % 10.8 % (4.4-11.3); NEUTROPHILS # (AUTO) 7.3 (2.1-6.9); NEUTROPHILS % 71.5 % (38.7-80.0); RED BLOOD COUNT 2.04 x10e6/uL (4.3-5.7); RED CELL DISTRIBUTION WIDTH 26.6 % (11.7-14.4)
[2022-03-10 13:24] LABS: INR 1.74; PLATELET COUNT 103 x10e3/uL (140-360); PROTHROMBIN TIME 21.7 seconds (11.9-14.5)
[2022-03-10 13:25] LABS: PARTIAL THROMBOPLASTIN TIME 46.6 seconds (23.8-35.5)
[2022-03-10 13:26] LABS: HEMOGLOBIN 6.6 g/dL (14.0-18.0)
[2022-03-10] MEDS ORDERED: CEFEPIME 2 GM in SODIUM CHLORIDE 0.9% 100 ML IV ONE (13:30)
[2022-03-10] MEDS ORDERED: SODIUM CHLORIDE 0.9% 250ML 250 ML IV ONE ×2 (13:30)
[2022-03-10 13:32] LABS: ALBUMIN 1.8 g/dL (3.5-5.0); ALBUMIN/GLOBULIN RATIO 0.4 (0.8-2.0); ANION GAP 12.5 mmol/L (8-16); CALCIUM 7.3 mg/dL (8.4-10.2); CREATININE, SERUM 1.46 mg/dL (0.72-1.25); POTASSIUM 3.5 mmol/L (3.5-5.1)
[2022-03-10 13:38] LABS: CREATINE KINASE MB 2.3 ng/mL (0-5.0)
[2022-03-10 13:46] LABS: B-TYPE NATRIURETIC PEPTIDE2 4245.2 pg/mL (0-100)
[2022-03-10] MEDS ORDERED: OCTREOTIDE ACETATE 0.05 MG/ML AMP IV STA (13:46)
[2022-03-10 13:51] LABS: CLARITY,URINE CLEAR (CLEAR); COLOR,URINE YELLOW (YELLOW)
[2022-03-10 13:52] LABS: KETONES,URINE NEGATIVE (NEGATIVE); LEUKOCYTE ESTERASE ,URINE NEGATIVE (NEGATIVE); NITRITE,URINE NEGATIVE (NEGATIVE); PROTEIN,URINE DIPSTICK 2+ (NEGATIVE); URINE UROBILINOGEN 0.2 mg/dL (0.2 - 1)
[2022-03-10 14:05] LABS: RBC,URINE >50 /HPF (0-5)
[2022-03-10 14:06] LABS: BACTERIA,URINE FEW /HPF
[2022-03-10] MEDS ORDERED: OCTREOTIDE ACETATE 0 ML ONE (14:18)
[2022-03-10] MEDS: OCTREOTIDE ACETATE 500 MCG in SODIUM CHLORIDE 0.9% 250ML 250 ML IV SCH (14:47)
[2022-03-10] MEDS ORDERED: PHYTONADIONE 10 MG/ML AMP SC ONE (15:15)
[2022-03-10] MEDS ORDERED: FUROSEMIDE INJ 10 MG/ML 2 ML VIAL IV SCH (15:15)
[2022-03-10] MEDS: MIDODRINE HCL 5 MG TABLET PO SCH (16:20)
[2022-03-10] MEDS: RIFAXIMIN 550 MG TABLET PO SCH (16:30)
[2022-03-10] MEDS ORDERED: LACTULOSE 20 GM PO SCH (17:00)
[2022-03-10] MEDS: LACTULOSE SYRUP 20 GM/30 ML UDC PO SCH (17:00)
[2022-03-10] MEDS ORDERED: FUROSEMIDE INJ 10 MG/ML 2 ML VIAL IV ONE (17:30)
[2022-03-10] MEDS ORDERED: SODIUM CHLORIDE 0.9% 250ML 250 ML ONE (17:46)
[2022-03-10] MEDS ORDERED: B&O 60MG R/S 60 MG SUPP PR ONE (18:15)
[2022-03-10] MEDS ORDERED: B&O 60MG R/S 60 MG SUPP PR PRN (18:45)
[2022-03-10] MEDS: SIMVASTATIN 20 MG TAB PO SCH (20:28)
[2022-03-10 23:27] LABS: BASOPHILS % 0.2 % (0.0-1.0); EOSINOPHILS # (AUTO) 0.1 (0.0-0.4); EOSINOPHILS % 0.7 % (0.0-6.0); HEMATOCRIT 26.1 % (38.2-49.6); HEMOGLOBIN 8.5 g/dL (14.0-18.0); LYMPHOCYTES # (AUTO) 1.5 (1.0-3.2); LYMPHOCYTES % 11.7 % (18.0-39.1); MEAN CORPUSCULAR HEMOGLOBIN 30.6 pg (28-32); MEAN CORPUSCULAR HGB CONC 32.6 g/dL (31-35); MEAN CORPUSCULAR VOLUME 93.9 fL (81-99); MONOCYTES # (AUTO) 1.5 (0.2-0.8); MONOCYTES % 12.2 % (4.4-11.3); NEUTROPHILS # (AUTO) 9.4 (2.1-6.9); NEUTROPHILS % 74.6 % (38.7-80.0); PLATELET COUNT 71 x10e3/uL (140-360); RED BLOOD COUNT 2.78 x10e6/uL (4.3-5.7); RED CELL DISTRIBUTION WIDTH 27.1 % (11.7-14.4)
[2022-03-10 23:50] LABS: CREATINE KINASE MB 2.2 ng/mL (0-5.0)
[2022-03-11] VITALS (29 sets, daily range): BP systolic 86–107; BP diastolic 37–69
[2022-03-11] MEDS: OCTREOTIDE ACETATE 500 MCG in SODIUM CHLORIDE 0.9% 250ML 250 ML IV SCH ×3 (00:16→20:47)
[2022-03-11 05:11] LABS: BASOPHILS % 0.3 % (0.0-1.0); EOSINOPHILS # (AUTO) 0.1 (0.0-0.4); EOSINOPHILS % 0.9 % (0.0-6.0); HEMATOCRIT 24.6 % (38.2-49.6); HEMOGLOBIN 8.2 g/dL (14.0-18.0); LYMPHOCYTES # (AUTO) 1.6 (1.0-3.2); LYMPHOCYTES % 14.1 % (18.0-39.1); MEAN CORPUSCULAR HEMOGLOBIN 31.1 pg (28-32); MEAN CORPUSCULAR HGB CONC 33.3 g/dL (31-35); MEAN CORPUSCULAR VOLUME 93.2 fL (81-99); MONOCYTES # (AUTO) 1.5 (0.2-0.8); MONOCYTES % 12.8 % (4.4-11.3); NEUTROPHILS # (AUTO) 8.2 (2.1-6.9); NEUTROPHILS % 71.1 % (38.7-80.0); PLATELET COUNT 51 x10e3/uL (140-360); RED BLOOD COUNT 2.64 x10e6/uL (4.3-5.7); RED CELL DISTRIBUTION WIDTH 27.2 % (11.7-14.4)
[2022-03-11 05:37] LABS: INR 1.54; PROTHROMBIN TIME 19.8 seconds (11.9-14.5)
[2022-03-11 05:49] LABS: ALBUMIN 1.9 g/dL (3.5-5.0); ALBUMIN/GLOBULIN RATIO 0.4 (0.8-2.0); ANION GAP 11.3 mmol/L (8-16); CALCIUM 7.5 mg/dL (8.4-10.2); CREATININE, SERUM 1.54 mg/dL (0.72-1.25); POTASSIUM 3.3 mmol/L (3.5-5.1)
[2022-03-11 06:36] LABS: MAGNESIUM 1.5 MG/DL (1.3-2.1); PHOSPHORUS 3.5 MG/DL (2.3-4.7)
[2022-03-11] MEDS: MULTIVITAMINS/MINERALS TAB PO SCH (08:07)
[2022-03-11] MEDS: RIFAXIMIN 550 MG TABLET PO SCH ×2 (08:07→18:05)
[2022-03-11] MEDS: MIDODRINE HCL 5 MG TABLET PO SCH ×3 (08:07→18:05)
[2022-03-11 08:18] LABS: CREATINE KINASE MB 2.2 ng/mL (0-5.0)
[2022-03-11] MEDS: LACTULOSE SYRUP 20 GM/30 ML UDC PO SCH ×2 (09:00→17:00)
[2022-03-11] MEDS ORDERED: FUROSEMIDE INJ 10 MG/ML 4 ML VIAL IV ONE ×2 (10:30→12:30)
[2022-03-11] MEDS ORDERED: MAGNESIUM SULFATE 2GM/50ML 50 ML IV ONE (17:15)
[2022-03-11 17:32] LABS: BASOPHILS # (AUTO) 0.1 (0.0-0.1); BASOPHILS % 0.3 % (0.0-1.0); EOSINOPHILS # (AUTO) 0.1 (0.0-0.4); EOSINOPHILS % 0.6 % (0.0-6.0); HEMATOCRIT 26.7 % (38.2-49.6); HEMOGLOBIN 8.6 g/dL (14.0-18.0); LYMPHOCYTES # (AUTO) 1.6 (1.0-3.2); LYMPHOCYTES % 10.7 % (18.0-39.1); MEAN CORPUSCULAR HEMOGLOBIN 30.6 pg (28-32); MEAN CORPUSCULAR HGB CONC 32.2 g/dL (31-35); MONOCYTES # (AUTO) 1.8 (0.2-0.8); MONOCYTES % 11.6 % (4.4-11.3); NEUTROPHILS # (AUTO) 11.7 (2.1-6.9); NEUTROPHILS % 76.1 % (38.7-80.0); PLATELET COUNT 90 x10e3/uL (140-360); RED BLOOD COUNT 2.81 x10e6/uL (4.3-5.7); RED CELL DISTRIBUTION WIDTH 29.1 % (11.7-14.4)
[2022-03-11] MEDS ORDERED: POTASSIUM CHLORIDE 20 MEQ TAB CR PO ONE (17:40)
[2022-03-11] MEDS ORDERED: MAGNESIUM OXIDE 400 MG TAB PO ONE (17:45)
[2022-03-11] MEDS: SIMVASTATIN 20 MG TAB PO SCH (20:16)
[2022-03-12] VITALS (30 sets, daily range): BP systolic 72–113; BP diastolic 43–68
[2022-03-12 05:45] LABS: BASOPHILS # (AUTO) 0.1 (0.0-0.1); BASOPHILS % 0.4 % (0.0-1.0); EOSINOPHILS # (AUTO) 0.1 (0.0-0.4); EOSINOPHILS % 0.9 % (0.0-6.0); HEMATOCRIT 25.3 % (38.2-49.6); HEMOGLOBIN 8.3 g/dL (14.0-18.0); LYMPHOCYTES # (AUTO) 1.7 (1.0-3.2); LYMPHOCYTES % 12.4 % (18.0-39.1); MEAN CORPUSCULAR HEMOGLOBIN 30.9 pg (28-32); MEAN CORPUSCULAR HGB CONC 32.8 g/dL (31-35); MEAN CORPUSCULAR VOLUME 94.1 fL (81-99); MONOCYTES # (AUTO) 1.7 (0.2-0.8); MONOCYTES % 12.1 % (4.4-11.3); NEUTROPHILS # (AUTO) 10.3 (2.1-6.9); NEUTROPHILS % 73.5 % (38.7-80.0); PLATELET COUNT 58 x10e3/uL (140-360); RED BLOOD COUNT 2.69 x10e6/uL (4.3-5.7); RED CELL DISTRIBUTION WIDTH 29.6 % (11.7-14.4)
[2022-03-12 06:13] LABS: ANION GAP 14.5 mmol/L (8-16); CALCIUM 7.4 mg/dL (8.4-10.2); CREATININE, SERUM 1.81 mg/dL (0.72-1.25); POTASSIUM 3.5 mmol/L (3.5-5.1)
[2022-03-12] MEDS: OCTREOTIDE ACETATE 500 MCG in SODIUM CHLORIDE 0.9% 250ML 250 ML IV SCH ×2 (06:36→17:29)
[2022-03-12] MEDS: MIDODRINE HCL 5 MG TABLET PO SCH ×3 (08:59→17:29)
[2022-03-12] MEDS ORDERED: FUROSEMIDE INJ 10 MG/ML 4 ML VIAL IV SCH (09:00)
[2022-03-12] MEDS: MULTIVITAMINS/MINERALS TAB PO SCH (09:06)
[2022-03-12] MEDS: LACTULOSE SYRUP 20 GM/30 ML UDC PO SCH ×2 (09:06→17:29)
[2022-03-12] MEDS: RIFAXIMIN 550 MG TABLET PO SCH ×2 (09:07→17:29)
[2022-03-12] MEDS ORDERED: POTASSIUM CHLORIDE 20 MEQ TAB CR PO ONE (12:00)
[2022-03-12] MEDS: SIMVASTATIN 20 MG TAB PO SCH (20:47)
[2022-03-13] VITALS (25 sets, daily range): BP systolic 84–122; BP diastolic 35–67
[2022-03-13] MEDS: OCTREOTIDE ACETATE 500 MCG in SODIUM CHLORIDE 0.9% 250ML 250 ML IV SCH ×3 (03:26→22:08)
[2022-03-13 05:06] LABS: BASOPHILS # (AUTO) 0.1 (0.0-0.1); BASOPHILS % 0.4 % (0.0-1.0); EOSINOPHILS # (AUTO) 0.3 (0.0-0.4); HEMATOCRIT 25.1 % (38.2-49.6); HEMOGLOBIN 8.1 g/dL (14.0-18.0); LYMPHOCYTES # (AUTO) 1.2 (1.0-3.2); LYMPHOCYTES % 8.5 % (18.0-39.1); MEAN CORPUSCULAR HGB CONC 32.3 g/dL (31-35); MEAN CORPUSCULAR VOLUME 96.2 fL (81-99); MONOCYTES # (AUTO) 1.4 (0.2-0.8); MONOCYTES % 10.2 % (4.4-11.3); NEUTROPHILS # (AUTO) 10.5 (2.1-6.9); NEUTROPHILS % 78.2 % (38.7-80.0); PLATELET COUNT 80 x10e3/uL (140-360); RED BLOOD COUNT 2.61 x10e6/uL (4.3-5.7); RED CELL DISTRIBUTION WIDTH 31.1 % (11.7-14.4)
[2022-03-13 05:26] LABS: ALBUMIN 1.8 g/dL (3.5-5.0); ALBUMIN/GLOBULIN RATIO 0.4 (0.8-2.0); ANION GAP 12.1 mmol/L (8-16); CALCIUM 7.2 mg/dL (8.4-10.2); CREATININE, SERUM 1.61 mg/dL (0.72-1.25); POTASSIUM 3.1 mmol/L (3.5-5.1)
[2022-03-13] MEDS: LACTULOSE SYRUP 20 GM/30 ML UDC PO SCH ×2 (08:07→16:20)
[2022-03-13] MEDS: MIDODRINE HCL 5 MG TABLET PO SCH ×3 (08:07→17:55)
[2022-03-13] MEDS: MULTIVITAMINS/MINERALS TAB PO SCH (08:07)
[2022-03-13] MEDS: RIFAXIMIN 550 MG TABLET PO SCH ×2 (08:09→17:55)
[2022-03-13] MEDS ORDERED: POTASSIUM CHLORIDE 20MEQ/100ML 200 ML IV ONE (09:30)
[2022-03-13] MEDS: LEVALBUTEROL HCL SOLN NEBU 0.63 MG/3 ML NEB INH PRN ×3 (10:20→21:15)
[2022-03-13] MEDS: SIMVASTATIN 20 MG TAB PO SCH (20:29)
[2022-03-14] VITALS (30 sets, daily range): BP systolic 84–117; BP diastolic 31–73
[2022-03-14] MEDS: LEVALBUTEROL HCL SOLN NEBU 0.63 MG/3 ML NEB INH PRN ×4 (03:30→19:27)
[2022-03-14 06:15] LABS: BASOPHILS % 0.1 % (0.0-1.0); EOSINOPHILS # (AUTO) 0.1 (0.0-0.4); EOSINOPHILS % 0.3 % (0.0-6.0); HEMATOCRIT 25.4 % (38.2-49.6); HEMOGLOBIN 8.2 g/dL (14.0-18.0); LYMPHOCYTES # (AUTO) 0.6 (1.0-3.2); LYMPHOCYTES % 4.1 % (18.0-39.1); MEAN CORPUSCULAR HEMOGLOBIN 31.4 pg (28-32); MEAN CORPUSCULAR HGB CONC 32.3 g/dL (31-35); MEAN CORPUSCULAR VOLUME 97.3 fL (81-99); MONOCYTES # (AUTO) 0.9 (0.2-0.8); MONOCYTES % 6.3 % (4.4-11.3); NEUTROPHILS % 88.6 % (38.7-80.0); PLATELET COUNT 74 x10e3/uL (140-360); RED BLOOD COUNT 2.61 x10e6/uL (4.3-5.7)
[2022-03-14 06:39] LABS: ALBUMIN 1.7 g/dL (3.5-5.0); ALBUMIN/GLOBULIN RATIO 0.4 (0.8-2.0); ANION GAP 11.3 mmol/L (8-16); CALCIUM 7.3 mg/dL (8.4-10.2); CREATININE, SERUM 1.21 mg/dL (0.72-1.25); POTASSIUM 3.3 mmol/L (3.5-5.1)
[2022-03-14] MEDS: MULTIVITAMINS/MINERALS TAB PO SCH (08:34)
[2022-03-14] MEDS: MIDODRINE HCL 5 MG TABLET PO SCH ×3 (08:34→17:49)
[2022-03-14] MEDS: OCTREOTIDE ACETATE 500 MCG in SODIUM CHLORIDE 0.9% 250ML 250 ML IV SCH ×2 (08:34→17:49)
[2022-03-14] MEDS: RIFAXIMIN 550 MG TABLET PO SCH ×2 (08:35→17:49)
[2022-03-14] MEDS: LACTULOSE SYRUP 20 GM/30 ML UDC PO SCH ×2 (08:49→17:00)
[2022-03-14] MEDS ORDERED: POTASSIUM CHLORIDE 20MEQ/100ML 200 ML IV ONE (09:15)
[2022-03-14 11:23] LABS: BAND NEUTROPHILS % (MANUAL) 1 %; LYMPHOCYTES % (MANUAL) 12 % (19-48); MONOCYTES % (MANUAL) 3 % (3.4-9.0); NEUTROPHILS % (MANUAL) 84 % (40-74); PLATELET ESTIMATE MODERATELY DECREASED; PLATELET MORPHOLOGY COMMENT NORMAL
[2022-03-14 11:24] LABS: ANISOCYTOSIS MODERATE; RBC MORPHOLOGY COMMENT ABNORMAL
[2022-03-14] MEDS ORDERED: FUROSEMIDE INJ 10 MG/ML 4 ML VIAL IV ONE (13:30)
[2022-03-14] MEDS: SIMVASTATIN 20 MG TAB PO SCH (20:34)
[2022-03-15] VITALS (27 sets, daily range): BP systolic 82–114; BP diastolic 30–82
[2022-03-15] MEDS: LEVALBUTEROL HCL SOLN NEBU 0.63 MG/3 ML NEB INH PRN ×3 (03:40→19:35)
[2022-03-15] MEDS: OCTREOTIDE ACETATE 500 MCG in SODIUM CHLORIDE 0.9% 250ML 250 ML IV SCH ×2 (04:42→14:54)
[2022-03-15 05:47] LABS: BASOPHILS % 0.1 % (0.0-1.0); EOSINOPHILS # (AUTO) 0.1 (0.0-0.4); EOSINOPHILS % 0.6 % (0.0-6.0); HEMATOCRIT 25.5 % (38.2-49.6); HEMOGLOBIN 8.1 g/dL (14.0-18.0); LYMPHOCYTES # (AUTO) 0.6 (1.0-3.2); LYMPHOCYTES % 3.9 % (18.0-39.1); MEAN CORPUSCULAR HEMOGLOBIN 31.5 pg (28-32); MEAN CORPUSCULAR HGB CONC 31.8 g/dL (31-35); MEAN CORPUSCULAR VOLUME 99.2 fL (81-99); MONOCYTES # (AUTO) 0.7 (0.2-0.8); MONOCYTES % 4.6 % (4.4-11.3); NEUTROPHILS # (AUTO) 13.5 (2.1-6.9); NEUTROPHILS % 90.4 % (38.7-80.0); RED BLOOD COUNT 2.57 x10e6/uL (4.3-5.7)
[2022-03-15 06:04] LABS: PLATELET COUNT 49 x10e3/uL (140-360)
[2022-03-15 06:09] LABS: ALBUMIN 1.7 g/dL (3.5-5.0); ALBUMIN/GLOBULIN RATIO 0.4 (0.8-2.0); ANION GAP 11.3 mmol/L (8-16); CALCIUM 7.3 mg/dL (8.4-10.2); CREATININE, SERUM 1.22 mg/dL (0.72-1.25); POTASSIUM 3.3 mmol/L (3.5-5.1)
[2022-03-15] MEDS: MIDODRINE HCL 5 MG TABLET PO SCH ×3 (08:09→16:59)
[2022-03-15] MEDS ORDERED: ALBUMIN 25% 25GM 100ML 0.25 GM/ML BTL IV SCH (08:15)
[2022-03-15] MEDS: ALBUMIN 25% 25GM 100ML 100 ML IV SCH ×2 (08:45→16:58)
[2022-03-15] MEDS: RIFAXIMIN 550 MG TABLET PO SCH ×2 (08:46→16:59)
[2022-03-15] MEDS: BALSAM PERU/CASTOR OIL 60 GM OINT...G. TP SCH (08:46)
[2022-03-15] MEDS: MULTIVITAMINS/MINERALS TAB PO SCH (08:46)
[2022-03-15] MEDS ORDERED: POTASSIUM CHLORIDE 20MEQ/100ML 200 ML IV ONE (09:00)
[2022-03-15] MEDS: LACTULOSE SYRUP 20 GM/30 ML UDC PO SCH ×2 (09:00→16:58)
[2022-03-15 11:20] LABS: BAND NEUTROPHILS % (MANUAL) 1 %; LYMPHOCYTES % (MANUAL) 7 % (19-48); MONOCYTES % (MANUAL) 5 % (3.4-9.0); NEUTROPHILS % (MANUAL) 87 % (40-74); PLATELET ESTIMATE ADEQUATE; PLATELET MORPHOLOGY COMMENT NORMAL; RBC MORPHOLOGY COMMENT NORMAL
[2022-03-15] MEDS ORDERED: FUROSEMIDE INJ 10 MG/ML 4 ML VIAL IV ONE (15:45)
[2022-03-15] MEDS: SIMVASTATIN 20 MG TAB PO SCH (20:16)
[2022-03-16] VITALS (39 sets, daily range): BP systolic 81–125; BP diastolic 23–77
[2022-03-16] MEDS: OCTREOTIDE ACETATE 500 MCG in SODIUM CHLORIDE 0.9% 250ML 250 ML IV SCH ×3 (02:10→23:03)
[2022-03-16 05:53] LABS: ANION GAP 10.5 mmol/L (8-16); CALCIUM 7.7 mg/dL (8.4-10.2); CREATININE, SERUM 1.33 mg/dL (0.72-1.25); POTASSIUM 3.5 mmol/L (3.5-5.1)
[2022-03-16] MEDS: LEVALBUTEROL HCL SOLN NEBU 0.63 MG/3 ML NEB INH PRN ×3 (07:30→19:05)
[2022-03-16] MEDS: MIDODRINE HCL 5 MG TABLET PO SCH ×3 (08:00→17:08)
[2022-03-16] MEDS: MULTIVITAMINS/MINERALS TAB PO SCH (09:00)
[2022-03-16] MEDS: LACTULOSE SYRUP 20 GM/30 ML UDC PO SCH ×2 (09:00→17:08)
[2022-03-16] MEDS: BALSAM PERU/CASTOR OIL 60 GM OINT...G. TP SCH (09:54)
[2022-03-16] MEDS ORDERED: B&O 60MG R/S 60 MG SUPP PR PRN (11:00)
[2022-03-16] MEDS: MEROPENEM 1 GM in SODIUM CHLORIDE 0.9% 100 ML IV SCH ×2 (11:23→22:00)
[2022-03-16] MEDS ORDERED: ALBUMIN 25% 25GM 100ML 0.25 GM/ML BTL IV SCH (12:00)
[2022-03-16] MEDS: ALBUMIN 25% 25GM 100ML 100 ML IV SCH ×3 (12:02→23:45)
[2022-03-16] MEDS ORDERED: FUROSEMIDE INJ 10 MG/ML 4 ML VIAL IV ONE (16:15)
[2022-03-16] MEDS: RIFAXIMIN 550 MG TABLET PO SCH (17:08)
[2022-03-16] MEDS: SIMVASTATIN 20 MG TAB PO SCH (20:44)
[2022-03-17] VITALS (38 sets, daily range): BP systolic 76–139; BP diastolic 29–54
[2022-03-17] MEDS: LEVALBUTEROL HCL SOLN NEBU 0.63 MG/3 ML NEB INH PRN ×4 (00:05→19:35)
[2022-03-17 05:04] LABS: BASOPHILS % 0.1 % (0.0-1.0); EOSINOPHILS # (AUTO) 0.3 (0.0-0.4); EOSINOPHILS % 2.8 % (0.0-6.0); HEMATOCRIT 24.8 % (38.2-49.6); HEMOGLOBIN 7.6 g/dL (14.0-18.0); LYMPHOCYTES # (AUTO) 0.9 (1.0-3.2); LYMPHOCYTES % 10.4 % (18.0-39.1); MEAN CORPUSCULAR HEMOGLOBIN 31.5 pg (28-32); MEAN CORPUSCULAR HGB CONC 30.6 g/dL (31-35); MEAN CORPUSCULAR VOLUME 102.9 fL (81-99); MONOCYTES # (AUTO) 0.5 (0.2-0.8); MONOCYTES % 5.6 % (4.4-11.3); NEUTROPHILS # (AUTO) 7.2 (2.1-6.9); NEUTROPHILS % 80.5 % (38.7-80.0); PLATELET COUNT 55 x10e3/uL (140-360); RED BLOOD COUNT 2.41 x10e6/uL (4.3-5.7)
[2022-03-17 05:22] LABS: ALBUMIN 2.8 g/dL (3.5-5.0); ALBUMIN/GLOBULIN RATIO 0.7 (0.8-2.0); ANION GAP 13.7 mmol/L (8-16); CALCIUM 7.8 mg/dL (8.4-10.2); CREATININE, SERUM 1.6 mg/dL (0.72-1.25); POTASSIUM 3.7 mmol/L (3.5-5.1)
[2022-03-17] MEDS: MEROPENEM 1 GM in SODIUM CHLORIDE 0.9% 100 ML IV SCH ×3 (05:40→22:04)
[2022-03-17] MEDS: LACTULOSE SYRUP 20 GM/30 ML UDC PO SCH ×2 (09:02→17:35)
[2022-03-17] MEDS: MIDODRINE HCL 5 MG TABLET PO SCH ×3 (09:02→17:35)
[2022-03-17] MEDS: RIFAXIMIN 550 MG TABLET PO SCH ×2 (09:02→17:35)
[2022-03-17] MEDS: MULTIVITAMINS/MINERALS TAB PO SCH (09:02)
[2022-03-17] MEDS: BALSAM PERU/CASTOR OIL 60 GM OINT...G. TP SCH (09:02)
[2022-03-17] MEDS: OCTREOTIDE ACETATE 500 MCG in SODIUM CHLORIDE 0.9% 250ML 250 ML IV SCH ×2 (10:09→21:31)
[2022-03-17] MEDS: SIMVASTATIN 20 MG TAB PO SCH (21:25)
[2022-03-17] MEDS ORDERED: HYDROCODONE/APAP 5MG-325MG TAB PO PRN (22:15)
[2022-03-17] MEDS ORDERED: HYDROCODONE/APAP 5MG-325MG TAB ONE (22:26)
[2022-03-18] VITALS (50 sets, daily range): BP systolic 85–126; BP diastolic 26–82
[2022-03-18] MEDS: LEVALBUTEROL HCL SOLN NEBU 0.63 MG/3 ML NEB INH PRN ×2 (01:15→07:30)
[2022-03-18] MEDS: OCTREOTIDE ACETATE 500 MCG in SODIUM CHLORIDE 0.9% 250ML 250 ML IV SCH ×4 (02:15→20:17)
[2022-03-18 05:02] LABS: BASOPHILS % 0.1 % (0.0-1.0); EOSINOPHILS # (AUTO) 0.2 (0.0-0.4); HEMATOCRIT 26.5 % (38.2-49.6); HEMOGLOBIN 8.1 g/dL (14.0-18.0); LYMPHOCYTES # (AUTO) 1.2 (1.0-3.2); MEAN CORPUSCULAR HEMOGLOBIN 31.8 pg (28-32); MEAN CORPUSCULAR HGB CONC 30.6 g/dL (31-35); MEAN CORPUSCULAR VOLUME 103.9 fL (81-99); MONOCYTES # (AUTO) 0.6 (0.2-0.8); MONOCYTES % 6.7 % (4.4-11.3); NEUTROPHILS # (AUTO) 7.3 (2.1-6.9); NEUTROPHILS % 77.7 % (38.7-80.0); PLATELET COUNT 65 x10e3/uL (140-360); RED BLOOD COUNT 2.55 x10e6/uL (4.3-5.7); RED CELL DISTRIBUTION WIDTH 31.2 % (11.7-14.4)
[2022-03-18 05:19] LABS: ALBUMIN 2.6 g/dL (3.5-5.0); ALBUMIN/GLOBULIN RATIO 0.6 (0.8-2.0); CREATININE, SERUM 1.99 mg/dL (0.72-1.25)
[2022-03-18] MEDS: MEROPENEM 1 GM in SODIUM CHLORIDE 0.9% 100 ML IV SCH ×2 (06:01→21:00)
[2022-03-18] MEDS: MIDODRINE HCL 5 MG TABLET PO SCH ×3 (08:17→17:11)
[2022-03-18] MEDS: RIFAXIMIN 550 MG TABLET PO SCH ×2 (08:17→17:11)
[2022-03-18] MEDS ORDERED: LACTATED RINGER'S 500 ML INJ ONE (08:30)
[2022-03-18] MEDS: LACTULOSE SYRUP 20 GM/30 ML UDC PO SCH ×2 (08:32→17:11)
[2022-03-18] MEDS: MULTIVITAMINS/MINERALS TAB PO SCH (08:32)
[2022-03-18] MEDS: BALSAM PERU/CASTOR OIL 60 GM OINT...G. TP SCH (08:32)
[2022-03-18 08:37] LABS: ABG PCO2 51 mmHg (35-45); ABG PO2 173 mmHg (80-105)
[2022-03-18 08:38] LABS: ABG HCO3 20 mmol/L (22-26); ABG TCO2 22
[2022-03-18 16:22] LABS: ABG HCO3 21 mmol/L (22-26); ABG PCO2 59 mmHg (35-45); ABG PH 7.16 (7.35-7.45); ABG PO2 201 mmHg (80-105)
[2022-03-18 16:23] LABS: ABG TCO2 23
[2022-03-18] MEDS ORDERED: BENZOCAINE/TETRACAINE/BUTAMBEN AERO SPRAY 56 GM CAN TOP ONE (16:30)
[2022-03-18] MEDS ORDERED: ALBUMIN 25% 25GM 100ML 0.25 GM/ML BTL IV ONE (16:30)
[2022-03-18 16:36] LABS: CLARITY,URINE SL CLOUDY (CLEAR); COLOR,URINE YELLOW (YELLOW); KETONES,URINE TRACE (NEGATIVE); LEUKOCYTE ESTERASE ,URINE TRACE (NEGATIVE); NITRITE,URINE NEGATIVE (NEGATIVE); PROTEIN,URINE DIPSTICK 2+ (NEGATIVE); URINE UROBILINOGEN 0.2 mg/dL (0.2 - 1)
[2022-03-18 16:41] LABS: AMORPHOUS SEDIMENT,URINE MODERATE (FEW); BACTERIA,URINE MODERATE /HPF; WBC,URINE (MAN) 0-5 /HPF (0-5)
[2022-03-18] MEDS ORDERED: ALBUMIN 25% 25GM 100ML 100 ML IV ONE (16:45)
[2022-03-18 16:49] LABS: ALBUMIN 2.4 g/dL (3.5-5.0); ALBUMIN/GLOBULIN RATIO 0.5 (0.8-2.0); ANION GAP 15.1 mmol/L (8-16); CALCIUM 8.1 mg/dL (8.4-10.2); CREATININE, SERUM 2.14 mg/dL (0.72-1.25); POTASSIUM 4.1 mmol/L (3.5-5.1)
[2022-03-18] MEDS: PROPOFOL IV EMULSION 10MG/ML 100 ML IV PRN (17:00)
[2022-03-18 17:39] LABS: ABG PCO2 48 mmHg (35-45); ABG PH 7.22 (7.35-7.45); ABG PO2 92 mmHg (80-105)
[2022-03-18 17:40] LABS: ABG HCO3 20 mmol/L (22-26); ABG TCO2 21
[2022-03-18] MEDS: SODIUM BICARBONATE 650 MG TAB PO SCH (17:54)
[2022-03-18] MEDS ORDERED: LACTATED RINGER'S 500 ML IV ONE (18:00)
[2022-03-18] MEDS: NOREPINEPHRINE 8 MG/D5W 250 ML 250 ML IV PRN (18:27)
[2022-03-18] MEDS ORDERED: NOREPINEPHRINE 8 MG/D5W 250 ML 250 ML ONE (18:35)
[2022-03-18] MEDS: SIMVASTATIN 20 MG TAB PO SCH (21:00)
[2022-03-19] VITALS (92 sets, daily range): BP systolic 90–118; BP diastolic 38–61
[2022-03-19] MEDS: VASOPRESSIN 60 UNIT in DEXTROSE 5% 50ML 57 ML IV PRN ×2 (03:00→15:55)
[2022-03-19] MEDS: NOREPINEPHRINE 8 MG/D5W 250 ML 250 ML IV PRN ×2 (04:00→14:42)
[2022-03-19 04:55] LABS: BASOPHILS % 0.2 % (0.0-1.0); EOSINOPHILS # (AUTO) 0.6 (0.0-0.4); EOSINOPHILS % 5.8 % (0.0-6.0); HEMATOCRIT 27.4 % (38.2-49.6); HEMOGLOBIN 8.5 g/dL (14.0-18.0); LYMPHOCYTES # (AUTO) 2.1 (1.0-3.2); MEAN CORPUSCULAR HEMOGLOBIN 32.1 pg (28-32); MEAN CORPUSCULAR VOLUME 103.4 fL (81-99); MONOCYTES % 8.9 % (4.4-11.3); NEUTROPHILS # (AUTO) 7.2 (2.1-6.9); NEUTROPHILS % 65.6 % (38.7-80.0); PLATELET COUNT 74 x10e3/uL (140-360); RED BLOOD COUNT 2.65 x10e6/uL (4.3-5.7); RED CELL DISTRIBUTION WIDTH 30.9 % (11.7-14.4)
[2022-03-19 05:12] LABS: ALBUMIN 2.7 g/dL (3.5-5.0); ALBUMIN/GLOBULIN RATIO 0.6 (0.8-2.0); CALCIUM 8.3 mg/dL (8.4-10.2); CREATININE, SERUM 2.35 mg/dL (0.72-1.25)
[2022-03-19] MEDS ORDERED: OCTREOTIDE ACETATE 1 ML ONE (05:54)
[2022-03-19] MEDS ORDERED: SODIUM CHLORIDE 0.9% 250ML 250 ML ONE (05:55)
[2022-03-19] MEDS: PROPOFOL IV EMULSION 10MG/ML 100 ML IV PRN ×4 (06:00→17:57)
[2022-03-19] MEDS: OCTREOTIDE ACETATE 500 MCG in SODIUM CHLORIDE 0.9% 250ML 250 ML IV SCH ×2 (06:00→16:09)
[2022-03-19] MEDS: MIDODRINE HCL 5 MG TABLET PO SCH ×3 (08:11→16:09)
[2022-03-19] MEDS: MEROPENEM 1 GM in SODIUM CHLORIDE 0.9% 100 ML IV SCH (08:11)
[2022-03-19] MEDS: LACTULOSE SYRUP 20 GM/30 ML UDC PO SCH ×2 (08:11→16:09)
[2022-03-19] MEDS: RIFAXIMIN 550 MG TABLET PO SCH ×2 (08:11→16:09)
[2022-03-19] MEDS: MULTIVITAMINS/MINERALS TAB PO SCH (08:11)
[2022-03-19] MEDS: SODIUM BICARBONATE 650 MG TAB PO SCH ×2 (08:11→16:09)
[2022-03-19] MEDS: BALSAM PERU/CASTOR OIL 60 GM OINT...G. TP SCH (08:12)
[2022-03-19 09:11] LABS: ABG HCO3 20 mmol/L (22-26); ABG PCO2 39 mmHg (35-45); ABG PH 7.31 (7.35-7.45); ABG PO2 160 mmHg (80-105); ABG TCO2 21
[2022-03-19] MEDS ORDERED: ETOMIDATE 2 MG/ML 10 ML INJ IV ONE (12:32)
[2022-03-19] MEDS ORDERED: WATER STERILE 10 ML VIAL ONE (12:32)
[2022-03-19] MEDS ORDERED: MIDAZOLAM HCL 2 MG/2 ML VIAL ONE (12:32)
[2022-03-19] MEDS ORDERED: VECURONIUM BROMIDE FOR INJ 20 MG VIAL ONE (12:32)
[2022-03-19] MEDS ORDERED: FUROSEMIDE INJ 10 MG/ML 4 ML VIAL IV ONE (16:00)
[2022-03-19] MEDS: ALBUMIN 25% 25GM 100ML 0.25 GM/ML BTL IV SCH (16:04)
[2022-03-19] MEDS: SIMVASTATIN 20 MG TAB PO SCH (21:40)
[2022-03-20] VITALS (93 sets, daily range): BP systolic 94–119; BP diastolic 38–60
[2022-03-20] MEDS: PROPOFOL IV EMULSION 10MG/ML 100 ML IV PRN ×2 (01:22→07:09)
[2022-03-20] MEDS: OCTREOTIDE ACETATE 500 MCG in SODIUM CHLORIDE 0.9% 250ML 250 ML IV SCH ×2 (02:48→14:28)
[2022-03-20] MEDS: NOREPINEPHRINE 8 MG/D5W 250 ML 250 ML IV PRN (02:49)
[2022-03-20] MEDS: ALBUMIN 25% 25GM 100ML 0.25 GM/ML BTL IV SCH ×2 (04:22→16:00)
[2022-03-20 05:41] LABS: BASOPHILS % 0.4 % (0.0-1.0); EOSINOPHILS # (AUTO) 0.4 (0.0-0.4); EOSINOPHILS % 4.4 % (0.0-6.0); HEMATOCRIT 24.9 % (38.2-49.6); HEMOGLOBIN 7.6 g/dL (14.0-18.0); LYMPHOCYTES # (AUTO) 2.2 (1.0-3.2); LYMPHOCYTES % 22.3 % (18.0-39.1); MEAN CORPUSCULAR HEMOGLOBIN 31.8 pg (28-32); MEAN CORPUSCULAR HGB CONC 30.5 g/dL (31-35); MEAN CORPUSCULAR VOLUME 104.2 fL (81-99); MONOCYTES # (AUTO) 1.1 (0.2-0.8); MONOCYTES % 11.1 % (4.4-11.3); NEUTROPHILS # (AUTO) 6.1 (2.1-6.9); NEUTROPHILS % 61.3 % (38.7-80.0); PLATELET COUNT 65 x10e3/uL (140-360); RED BLOOD COUNT 2.39 x10e6/uL (4.3-5.7); RED CELL DISTRIBUTION WIDTH 31.2 % (11.7-14.4)
[2022-03-20 05:54] LABS: INR 1.67; PARTIAL THROMBOPLASTIN TIME 39.4 seconds (23.8-35.5)
[2022-03-20 05:55] LABS: ALBUMIN/GLOBULIN RATIO 0.7 (0.8-2.0); ANION GAP 16.8 mmol/L (8-16); CALCIUM 8.3 mg/dL (8.4-10.2); CREATININE, SERUM 2.97 mg/dL (0.72-1.25); POTASSIUM 3.8 mmol/L (3.5-5.1)
[2022-03-20] MEDS: VASOPRESSIN 60 UNIT in DEXTROSE 5% 50ML 57 ML IV PRN ×2 (06:46→18:36)
[2022-03-20 07:38] LABS: ABG HCO3 19 mmol/L (22-26); ABG PCO2 37 mmHg (35-45); ABG PH 7.32 (7.35-7.45); ABG PO2 122 mmHg (80-105); ABG TCO2 20
[2022-03-20] MEDS: MULTIVITAMINS/MINERALS TAB PO SCH (08:06)
[2022-03-20] MEDS: BALSAM PERU/CASTOR OIL 60 GM OINT...G. TP SCH (08:06)
[2022-03-20] MEDS: RIFAXIMIN 550 MG TABLET PO SCH ×2 (08:06→16:25)
[2022-03-20] MEDS: MIDODRINE HCL 5 MG TABLET PO SCH ×3 (08:06→16:25)
[2022-03-20] MEDS: SODIUM BICARBONATE 650 MG TAB PO SCH ×2 (08:06→16:25)
[2022-03-20] MEDS: LACTULOSE SYRUP 20 GM/30 ML UDC PO SCH ×2 (08:06→16:25)
[2022-03-20 09:16] LABS: ANISOCYTOSIS MODERATE; EOSINOPHILS % (MANUAL) 2 % (0-7); LYMPHOCYTES % (MANUAL) 14 % (19-48); MONOCYTES % (MANUAL) 5 % (3.4-9.0); NEUTROPHILS % (MANUAL) 78 % (40-74); NUCLEATED RED BLOOD CELLS 2; PLATELET ESTIMATE MODERATELY DECREASED; PLATELET MORPHOLOGY COMMENT NORMAL; RBC MORPHOLOGY COMMENT ABNORMAL
[2022-03-20 09:17] LABS: ELLIPTOCYTE, RBC SLIGHT; OVALOCYTES FEW; POIKILOCYTOSIS SLIGHT; POLYCHROMASIA FEW; SPHEROCYTES FEW
[2022-03-20] MEDS: SIMVASTATIN 20 MG TAB PO SCH (20:29)
[2022-03-21] VITALS (91 sets, daily range): BP systolic 103–118; BP diastolic 37–62
[2022-03-21] MEDS: OCTREOTIDE ACETATE 500 MCG in SODIUM CHLORIDE 0.9% 250ML 250 ML IV SCH ×3 (00:16→19:33)
[2022-03-21] MEDS: NOREPINEPHRINE 8 MG/D5W 250 ML 250 ML IV PRN (02:30)
[2022-03-21] MEDS: VASOPRESSIN 60 UNIT in DEXTROSE 5% 50ML 57 ML IV PRN (03:15)
[2022-03-21] MEDS: PROPOFOL IV EMULSION 10MG/ML 100 ML IV PRN ×3 (03:19→23:44)
[2022-03-21 06:15] LABS: BASOPHILS % 0.4 % (0.0-1.0); EOSINOPHILS # (AUTO) 0.3 (0.0-0.4); EOSINOPHILS % 2.9 % (0.0-6.0); HEMATOCRIT 25.2 % (38.2-49.6); HEMOGLOBIN 7.7 g/dL (14.0-18.0); LYMPHOCYTES # (AUTO) 1.5 (1.0-3.2); LYMPHOCYTES % 16.1 % (18.0-39.1); MEAN CORPUSCULAR HEMOGLOBIN 32.2 pg (28-32); MEAN CORPUSCULAR HGB CONC 30.6 g/dL (31-35); MEAN CORPUSCULAR VOLUME 105.4 fL (81-99); MONOCYTES # (AUTO) 1.1 (0.2-0.8); MONOCYTES % 11.9 % (4.4-11.3); NEUTROPHILS # (AUTO) 6.5 (2.1-6.9); NEUTROPHILS % 67.9 % (38.7-80.0); PLATELET COUNT 54 x10e3/uL (140-360); RED BLOOD COUNT 2.39 x10e6/uL (4.3-5.7); RED CELL DISTRIBUTION WIDTH 31.1 % (11.7-14.4)
[2022-03-21 06:35] LABS: ANION GAP 15.9 mmol/L (8-16); CALCIUM 8.2 mg/dL (8.4-10.2); CREATININE, SERUM 3.01 mg/dL (0.72-1.25); POTASSIUM 3.9 mmol/L (3.5-5.1)
[2022-03-21] MEDS: MIDODRINE HCL 5 MG TABLET PO SCH ×3 (08:32→22:18)
[2022-03-21] MEDS: SODIUM BICARBONATE 650 MG TAB PO SCH ×2 (09:08→17:03)
[2022-03-21] MEDS: LACTULOSE SYRUP 20 GM/30 ML UDC PO SCH ×2 (09:08→17:03)
[2022-03-21] MEDS: BALSAM PERU/CASTOR OIL 60 GM OINT...G. TP SCH (09:08)
[2022-03-21] MEDS: MULTIVITAMINS/MINERALS TAB PO SCH (09:08)
[2022-03-21] MEDS: RIFAXIMIN 550 MG TABLET PO SCH ×2 (09:08→17:03)
[2022-03-21] MEDS ORDERED: SODIUM CHLORIDE 0.9% 250ML 0 ML ONE (09:18)
[2022-03-21] MEDS ORDERED: FUROSEMIDE INJ 10 MG/ML 4 ML VIAL IV ONE (11:15)
[2022-03-21] MEDS: SIMVASTATIN 20 MG TAB PO SCH (20:33)
[2022-03-22] VITALS (95 sets, daily range): BP systolic 94–120; BP diastolic 33–56
[2022-03-22] MEDS: VASOPRESSIN 60 UNIT in DEXTROSE 5% 50ML 57 ML IV PRN ×2 (01:39→18:02)
[2022-03-22] MEDS: NOREPINEPHRINE 8 MG/D5W 250 ML 250 ML IV PRN ×3 (02:08→22:00)
[2022-03-22] MEDS: OCTREOTIDE ACETATE 500 MCG in SODIUM CHLORIDE 0.9% 250ML 250 ML IV SCH ×2 (05:21→17:22)
[2022-03-22] MEDS: MIDODRINE HCL 5 MG TABLET PO SCH ×3 (06:08→22:14)
[2022-03-22] MEDS: LACTULOSE SYRUP 20 GM/30 ML UDC PO SCH ×2 (08:56→17:22)
[2022-03-22] MEDS: MULTIVITAMINS/MINERALS TAB PO SCH (08:56)
[2022-03-22] MEDS: RIFAXIMIN 550 MG TABLET PO SCH ×2 (08:56→17:22)
[2022-03-22] MEDS: SODIUM BICARBONATE 650 MG TAB PO SCH ×2 (08:56→17:22)
[2022-03-22] MEDS: PROPOFOL IV EMULSION 10MG/ML 100 ML IV PRN ×2 (09:00→19:08)
[2022-03-22] MEDS: BALSAM PERU/CASTOR OIL 60 GM OINT...G. TP SCH (10:24)
[2022-03-22 11:39] LABS: BASOPHILS # (AUTO) 0.1 (0.0-0.1); BASOPHILS % 0.6 % (0.0-1.0); EOSINOPHILS # (AUTO) 0.2 (0.0-0.4); EOSINOPHILS % 2.2 % (0.0-6.0); LYMPHOCYTES # (AUTO) 1.4 (1.0-3.2); LYMPHOCYTES % 12.7 % (18.0-39.1); MEAN CORPUSCULAR HEMOGLOBIN 32.9 pg (28-32); MEAN CORPUSCULAR HGB CONC 30.8 g/dL (31-35); MONOCYTES # (AUTO) 1.2 (0.2-0.8); MONOCYTES % 10.6 % (4.4-11.3); NEUTROPHILS # (AUTO) 8.2 (2.1-6.9); NEUTROPHILS % 73.4 % (38.7-80.0); RED BLOOD COUNT 2.43 x10e6/uL (4.3-5.7); RED CELL DISTRIBUTION WIDTH 31.7 % (11.7-14.4)
[2022-03-22 11:54] LABS: PLATELET COUNT 48 x10e3/uL (140-360)
[2022-03-22 12:11] LABS: ALBUMIN 2.9 g/dL (3.5-5.0); ALBUMIN/GLOBULIN RATIO 0.7 (0.8-2.0); ANION GAP 16.2 mmol/L (8-16); CALCIUM 8.1 mg/dL (8.4-10.2); CREATININE, SERUM 3.02 mg/dL (0.72-1.25); POTASSIUM 4.2 mmol/L (3.5-5.1)
[2022-03-22] MEDS: SIMVASTATIN 20 MG TAB PO SCH (21:17)
[2022-03-23] VITALS (94 sets, daily range): BP systolic 92–129; BP diastolic 37–53
[2022-03-23] MEDS: OCTREOTIDE ACETATE 500 MCG in SODIUM CHLORIDE 0.9% 250ML 250 ML IV SCH ×3 (02:00→22:08)
[2022-03-23] MEDS: PROPOFOL IV EMULSION 10MG/ML 100 ML IV PRN ×3 (04:30→17:19)
[2022-03-23 05:02] LABS: BASOPHILS # (AUTO) 0.1 (0.0-0.1); BASOPHILS % 0.8 % (0.0-1.0); EOSINOPHILS # (AUTO) 0.2 (0.0-0.4); EOSINOPHILS % 1.4 % (0.0-6.0); HEMATOCRIT 26.4 % (38.2-49.6); HEMOGLOBIN 8.2 g/dL (14.0-18.0); LYMPHOCYTES # (AUTO) 1.6 (1.0-3.2); LYMPHOCYTES % 13.7 % (18.0-39.1); MEAN CORPUSCULAR HEMOGLOBIN 32.9 pg (28-32); MEAN CORPUSCULAR HGB CONC 31.1 g/dL (31-35); MONOCYTES # (AUTO) 1.3 (0.2-0.8); MONOCYTES % 11.1 % (4.4-11.3); NEUTROPHILS # (AUTO) 8.7 (2.1-6.9); NEUTROPHILS % 72.5 % (38.7-80.0); PLATELET COUNT 53 x10e3/uL (140-360); RED BLOOD COUNT 2.49 x10e6/uL (4.3-5.7); RED CELL DISTRIBUTION WIDTH 31.4 % (11.7-14.4)
[2022-03-23 05:22] LABS: ALBUMIN 2.9 g/dL (3.5-5.0); ALBUMIN/GLOBULIN RATIO 0.6 (0.8-2.0); ANION GAP 17.3 mmol/L (8-16); CREATININE, SERUM 3.19 mg/dL (0.72-1.25); MAGNESIUM 2.2 MG/DL (1.3-2.1); PHOSPHORUS 8.2 MG/DL (2.3-4.7); POTASSIUM 4.3 mmol/L (3.5-5.1)
[2022-03-23] MEDS: MIDODRINE HCL 5 MG TABLET PO SCH ×3 (06:00→21:03)
[2022-03-23 07:50] LABS: ABG HCO3 20 mmol/L (22-26); ABG PCO2 43 mmHg (35-45); ABG PH 7.29 (7.35-7.45); ABG PO2 103 mmHg (80-105); ABG TCO2 22
[2022-03-23] MEDS: SODIUM BICARBONATE 650 MG TAB PO SCH ×2 (08:14→16:33)
[2022-03-23] MEDS: BALSAM PERU/CASTOR OIL 60 GM OINT...G. TP SCH (08:14)
[2022-03-23] MEDS: RIFAXIMIN 550 MG TABLET PO SCH (08:14)
[2022-03-23] MEDS: LACTULOSE SYRUP 20 GM/30 ML UDC PO SCH ×2 (08:14→16:33)
[2022-03-23] MEDS: MULTIVITAMINS/MINERALS TAB PO SCH (08:14)
[2022-03-23 09:19] LABS: INR 1.59; PROTHROMBIN TIME 20.3 seconds (11.9-14.5)
[2022-03-23 09:20] LABS: PARTIAL THROMBOPLASTIN TIME 38.9 seconds (23.8-35.5)
[2022-03-23] MEDS ORDERED: SODIUM CHLORIDE 0.9% 1000ML 2,000 ML IV PRN (12:45)
[2022-03-23] MEDS ORDERED: SODIUM CHLORIDE 0.9% 250ML 500 ML IV PRN (12:45)
[2022-03-23] MEDS ORDERED: HEPARIN SOD (PORCINE) 1000 UNIT/ML SDV IV PRN (12:45)
[2022-03-23] MEDS ORDERED: MANNITOL 25% 12.5GM/50 ML VIAL IV PRN (12:45)
[2022-03-23] MEDS ORDERED: ALBUMIN 25% 12.5GM 0.25 GM/ML BTL IV PRN (12:45)
[2022-03-23] MEDS: NOREPINEPHRINE 8 MG/D5W 250 ML 250 ML IV PRN ×3 (15:02→23:21)
[2022-03-23] MEDS: VASOPRESSIN 60 UNIT in DEXTROSE 5% 50ML 57 ML IV PRN (15:02)
[2022-03-23] MEDS: SIMVASTATIN 20 MG TAB PO SCH (21:03)
[2022-03-24] VITALS (84 sets, daily range): BP systolic 81–116; BP diastolic 37–55
[2022-03-24] MEDS: VASOPRESSIN 60 UNIT in DEXTROSE 5% 50ML 57 ML IV PRN ×2 (04:01→21:16)
[2022-03-24] MEDS: PROPOFOL IV EMULSION 10MG/ML 100 ML IV PRN ×3 (04:03→21:15)
[2022-03-24] MEDS: MIDODRINE HCL 5 MG TABLET PO SCH ×3 (05:36→21:14)
[2022-03-24 05:47] LABS: BASOPHILS # (AUTO) 0.1 (0.0-0.1); BASOPHILS % 0.7 % (0.0-1.0); EOSINOPHILS # (AUTO) 0.2 (0.0-0.4); EOSINOPHILS % 1.9 % (0.0-6.0); HEMATOCRIT 25.8 % (38.2-49.6); LYMPHOCYTES # (AUTO) 1.3 (1.0-3.2); LYMPHOCYTES % 11.9 % (18.0-39.1); MEAN CORPUSCULAR HEMOGLOBIN 32.9 pg (28-32); MEAN CORPUSCULAR VOLUME 106.2 fL (81-99); MONOCYTES # (AUTO) 0.9 (0.2-0.8); MONOCYTES % 8.4 % (4.4-11.3); NEUTROPHILS # (AUTO) 8.3 (2.1-6.9); NEUTROPHILS % 76.7 % (38.7-80.0); RED BLOOD COUNT 2.43 x10e6/uL (4.3-5.7); RED CELL DISTRIBUTION WIDTH 31.5 % (11.7-14.4)
[2022-03-24 05:52] LABS: PLATELET COUNT 40 x10e3/uL (140-360)
[2022-03-24 06:18] LABS: ALBUMIN 2.9 g/dL (3.5-5.0); ALBUMIN/GLOBULIN RATIO 0.7 (0.8-2.0); ANION GAP 14.8 mmol/L (8-16); CALCIUM 8.4 mg/dL (8.4-10.2); CREATININE, SERUM 2.61 mg/dL (0.72-1.25); POTASSIUM 3.8 mmol/L (3.5-5.1)
[2022-03-24] MEDS: OCTREOTIDE ACETATE 500 MCG in SODIUM CHLORIDE 0.9% 250ML 250 ML IV SCH ×2 (08:03→18:15)
[2022-03-24] MEDS: NOREPINEPHRINE 8 MG/D5W 250 ML 250 ML IV PRN ×2 (08:04→21:16)
[2022-03-24] MEDS: MULTIVITAMINS/MINERALS TAB PO SCH (08:13)
[2022-03-24] MEDS: BALSAM PERU/CASTOR OIL 60 GM OINT...G. TP SCH (08:13)
[2022-03-24] MEDS: SODIUM BICARBONATE 650 MG TAB PO SCH ×2 (08:13→16:12)
[2022-03-24] MEDS: LACTULOSE SYRUP 20 GM/30 ML UDC PO SCH ×2 (08:13→16:12)
[2022-03-24 08:49] LABS: ABG PCO2 36 mmHg (35-45); ABG PH 7.39 (7.35-7.45); ABG PO2 98 mmHg (80-105)
[2022-03-24 08:50] LABS: ABG HCO3 22 mmol/L (22-26); ABG TCO2 23
[2022-03-24 09:12] LABS: BAND NEUTROPHILS % (MANUAL) 1 %; EOSINOPHILS % (MANUAL) 2 % (0-7); LYMPHOCYTES % (MANUAL) 17 % (19-48); MONOCYTES % (MANUAL) 8 % (3.4-9.0); NEUTROPHILS % (MANUAL) 71 % (40-74)
[2022-03-24 09:13] LABS: ANISOCYTOSIS MARKED; HYPOCHROMASIA MODERATE; PLATELET ESTIMATE MARKEDLY DECREASED; PLATELET MORPHOLOGY COMMENT NORMAL; RBC MORPHOLOGY COMMENT ABNORMAL
[2022-03-24] MEDS: SIMVASTATIN 20 MG TAB PO SCH (20:33)
[2022-03-25] VITALS (94 sets, daily range): BP systolic 94–117; BP diastolic 35–57
[2022-03-25] MEDS: NOREPINEPHRINE 8 MG/D5W 250 ML 250 ML IV PRN ×3 (02:10→14:13)
[2022-03-25] MEDS: VASOPRESSIN 60 UNIT in DEXTROSE 5% 50ML 57 ML IV PRN ×2 (02:11→19:15)
[2022-03-25] MEDS: OCTREOTIDE ACETATE 500 MCG in SODIUM CHLORIDE 0.9% 250ML 250 ML IV SCH ×2 (04:29→14:29)
[2022-03-25] MEDS: PROPOFOL IV EMULSION 10MG/ML 100 ML IV PRN ×2 (06:05→19:00)
[2022-03-25] MEDS: MIDODRINE HCL 5 MG TABLET PO SCH ×3 (06:05→21:05)
[2022-03-25 06:09] LABS: BASOPHILS # (AUTO) 0.1 (0.0-0.1); BASOPHILS % 0.7 % (0.0-1.0); EOSINOPHILS # (AUTO) 0.3 (0.0-0.4); EOSINOPHILS % 2.3 % (0.0-6.0); HEMATOCRIT 25.1 % (38.2-49.6); HEMOGLOBIN 7.7 g/dL (14.0-18.0); LYMPHOCYTES # (AUTO) 1.4 (1.0-3.2); LYMPHOCYTES % 11.5 % (18.0-39.1); MEAN CORPUSCULAR HGB CONC 30.7 g/dL (31-35); MEAN CORPUSCULAR VOLUME 107.7 fL (81-99); MONOCYTES # (AUTO) 1.1 (0.2-0.8); MONOCYTES % 8.7 % (4.4-11.3); NEUTROPHILS # (AUTO) 9.2 (2.1-6.9); NEUTROPHILS % 76.2 % (38.7-80.0); RED BLOOD COUNT 2.33 x10e6/uL (4.3-5.7); RED CELL DISTRIBUTION WIDTH 31.9 % (11.7-14.4)
[2022-03-25 06:14] LABS: PLATELET COUNT 30 x10e3/uL (140-360)
[2022-03-25 06:33] LABS: ALANINE AMINOTRANSFERASE < 6 IU/L (0-55); ALBUMIN 2.5 g/dL (3.5-5.0); ALBUMIN/GLOBULIN RATIO 0.6 (0.8-2.0); ALKALINE PHOSPHATASE 84 IU/L (40-150); ANION GAP 13.7 mmol/L (8-16); BLOOD UREA NITROGEN 40 mg/dL (7-26); BUN/CREATININE RATIO 18 (6-25); CALCIUM 7.7 mg/dL (8.4-10.2); CARBON DIOXIDE 23 mmol/L (22-29); CHLORIDE 106 mmol/L (98-107); CREATININE, SERUM 2.19 mg/dL (0.72-1.25); GLUCOSE 150 mg/dL (74-118); POTASSIUM 3.7 mmol/L (3.5-5.1); SODIUM 139 mmol/L (136-145)
[2022-03-25 08:12] LABS: HYPOCHROMASIA SLIGHT; PLATELET ESTIMATE MARKEDLY DECREASED; PLATELET MORPHOLOGY COMMENT NORMAL; RBC MORPHOLOGY COMMENT NORMAL
[2022-03-25 08:38] LABS: ABG HCO3 23 mmol/L (22-26); ABG PCO2 36 mmHg (35-45); ABG PH 7.42 (7.35-7.45); ABG PO2 86 mmHg (80-105); ABG TCO2 24
[2022-03-25] MEDS: LACTULOSE SYRUP 20 GM/30 ML UDC PO SCH ×2 (09:43→17:59)
[2022-03-25] MEDS: BALSAM PERU/CASTOR OIL 60 GM OINT...G. TP SCH (09:43)
[2022-03-25] MEDS: SODIUM BICARBONATE 650 MG TAB PO SCH ×2 (09:43→17:59)
[2022-03-25] MEDS: MULTIVITAMINS/MINERALS TAB PO SCH (09:43)
[2022-03-25] MEDS: NYSTATIN 15 GM POWDER UD BTL TOP SCH ×2 (14:10→17:59)
[2022-03-25] MEDS: SIMVASTATIN 20 MG TAB PO SCH (21:05)
[2022-03-26] VITALS (86 sets, daily range): BP systolic 100–113; BP diastolic 38–55
[2022-03-26] MEDS: OCTREOTIDE ACETATE 500 MCG in SODIUM CHLORIDE 0.9% 250ML 250 ML IV SCH ×3 (00:49→20:23)
[2022-03-26] MEDS: MIDODRINE HCL 5 MG TABLET PO SCH ×3 (05:46→21:50)
[2022-03-26 06:02] LABS: BASOPHILS # (AUTO) 0.1 (0.0-0.1); BASOPHILS % 0.6 % (0.0-1.0); EOSINOPHILS # (AUTO) 0.2 (0.0-0.4); EOSINOPHILS % 1.5 % (0.0-6.0); HEMATOCRIT 25.9 % (38.2-49.6); HEMOGLOBIN 7.9 g/dL (14.0-18.0); LYMPHOCYTES # (AUTO) 1.3 (1.0-3.2); LYMPHOCYTES % 10.6 % (18.0-39.1); MEAN CORPUSCULAR HEMOGLOBIN 33.5 pg (28-32); MEAN CORPUSCULAR HGB CONC 30.5 g/dL (31-35); MEAN CORPUSCULAR VOLUME 109.7 fL (81-99); MONOCYTES # (AUTO) 1.2 (0.2-0.8); MONOCYTES % 10.1 % (4.4-11.3); NEUTROPHILS # (AUTO) 9.4 (2.1-6.9); NEUTROPHILS % 76.6 % (38.7-80.0); RED BLOOD COUNT 2.36 x10e6/uL (4.3-5.7)
[2022-03-26 06:17] LABS: ALBUMIN 2.6 g/dL (3.5-5.0); ALBUMIN/GLOBULIN RATIO 0.6 (0.8-2.0); ANION GAP 14.1 mmol/L (8-16); CALCIUM 8.3 mg/dL (8.4-10.2); CREATININE, SERUM 2.59 mg/dL (0.72-1.25); POTASSIUM 4.1 mmol/L (3.5-5.1)
[2022-03-26] MEDS: PROPOFOL IV EMULSION 10MG/ML 100 ML IV PRN ×2 (06:21→20:43)
[2022-03-26 06:32] LABS: PLATELET COUNT 43 x10e3/uL (140-360)
[2022-03-26 08:25] LABS: ABG HCO3 24 mmol/L (22-26); ABG PCO2 41 mmHg (35-45); ABG PH 7.37 (7.35-7.45); ABG PO2 114 mmHg (80-105); ABG TCO2 25
[2022-03-26] MEDS: LACTULOSE SYRUP 20 GM/30 ML UDC PO SCH ×2 (09:00→17:00)
[2022-03-26] MEDS: BALSAM PERU/CASTOR OIL 60 GM OINT...G. TP SCH (09:02)
[2022-03-26] MEDS: MULTIVITAMINS/MINERALS TAB PO SCH (09:02)
[2022-03-26] MEDS: NYSTATIN 15 GM POWDER UD BTL TOP SCH ×2 (09:02→18:06)
[2022-03-26] MEDS: SODIUM BICARBONATE 650 MG TAB PO SCH ×2 (09:03→18:06)
[2022-03-26] MEDS: CHOLESTYRAMINE 4 GM PACKET PO SCH ×3 (10:30→20:42)
[2022-03-26] MEDS: NOREPINEPHRINE 8 MG/D5W 250 ML 250 ML IV PRN (21:50)
[2022-03-26] MEDS: SIMVASTATIN 20 MG TAB PO SCH (21:50)
[2022-03-26] MEDS: VASOPRESSIN 60 UNIT in DEXTROSE 5% 50ML 57 ML IV PRN (21:50)
[2022-03-27] VITALS (88 sets, daily range): BP systolic 82–112; BP diastolic 35–57
[2022-03-27 05:09] LABS: BASOPHILS # (AUTO) 0.1 (0.0-0.1); BASOPHILS % 0.9 % (0.0-1.0); EOSINOPHILS # (AUTO) 0.3 (0.0-0.4); EOSINOPHILS % 2.5 % (0.0-6.0); HEMATOCRIT 26.4 % (38.2-49.6); HEMOGLOBIN 8.1 g/dL (14.0-18.0); LYMPHOCYTES # (AUTO) 1.5 (1.0-3.2); LYMPHOCYTES % 12.2 % (18.0-39.1); MEAN CORPUSCULAR HEMOGLOBIN 33.8 pg (28-32); MEAN CORPUSCULAR HGB CONC 30.7 g/dL (31-35); MONOCYTES # (AUTO) 1.3 (0.2-0.8); MONOCYTES % 10.6 % (4.4-11.3); NEUTROPHILS # (AUTO) 8.7 (2.1-6.9); NEUTROPHILS % 73.3 % (38.7-80.0); PLATELET COUNT 57 x10e3/uL (140-360)
[2022-03-27 05:40] LABS: ALBUMIN 2.6 g/dL (3.5-5.0); ALBUMIN/GLOBULIN RATIO 0.6 (0.8-2.0); ANION GAP 15.3 mmol/L (8-16); CALCIUM 8.3 mg/dL (8.4-10.2); CREATININE, SERUM 2.94 mg/dL (0.72-1.25); POTASSIUM 4.3 mmol/L (3.5-5.1)
[2022-03-27] MEDS: PROPOFOL IV EMULSION 10MG/ML 100 ML IV PRN (06:08)
[2022-03-27] MEDS: MIDODRINE HCL 5 MG TABLET PO SCH ×3 (06:08→21:14)
[2022-03-27] MEDS: BALSAM PERU/CASTOR OIL 60 GM OINT...G. TP SCH (09:58)
[2022-03-27] MEDS: SODIUM BICARBONATE 650 MG TAB PO SCH ×2 (09:58→17:37)
[2022-03-27] MEDS: OCTREOTIDE ACETATE 500 MCG in SODIUM CHLORIDE 0.9% 250ML 250 ML IV SCH ×2 (09:58→17:37)
[2022-03-27] MEDS: LACTULOSE SYRUP 20 GM/30 ML UDC PO SCH ×2 (09:58→17:37)
[2022-03-27] MEDS: NYSTATIN 15 GM POWDER UD BTL TOP SCH ×2 (09:58→17:37)
[2022-03-27] MEDS: MULTIVITAMINS/MINERALS TAB PO SCH (09:58)
[2022-03-27 10:35] LABS: ABG HCO3 22 mmol/L (22-26); ABG PCO2 40 mmHg (35-45); ABG PH 7.35 (7.35-7.45); ABG PO2 102 mmHg (80-105); ABG TCO2 23
[2022-03-27] MEDS: CHOLESTYRAMINE 4 GM PACKET PO SCH (12:20)
[2022-03-27] MEDS: NOREPINEPHRINE 8 MG/D5W 250 ML 250 ML IV PRN (17:37)
[2022-03-27] MEDS: SIMVASTATIN 20 MG TAB PO SCH (20:40)
[2022-03-28] VITALS (90 sets, daily range): BP systolic 94–119; BP diastolic 34–75
[2022-03-28] MEDS: OCTREOTIDE ACETATE 500 MCG in SODIUM CHLORIDE 0.9% 250ML 250 ML IV SCH ×3 (02:15→22:30)
[2022-03-28 05:30] LABS: BASOPHILS # (AUTO) 0.2 (0.0-0.1); BASOPHILS % 1.1 % (0.0-1.0); EOSINOPHILS # (AUTO) 0.3 (0.0-0.4); EOSINOPHILS % 1.9 % (0.0-6.0); HEMATOCRIT 27.8 % (38.2-49.6); HEMOGLOBIN 8.5 g/dL (14.0-18.0); LYMPHOCYTES # (AUTO) 1.8 (1.0-3.2); LYMPHOCYTES % 12.5 % (18.0-39.1); MEAN CORPUSCULAR HEMOGLOBIN 33.9 pg (28-32); MEAN CORPUSCULAR HGB CONC 30.6 g/dL (31-35); MEAN CORPUSCULAR VOLUME 110.8 fL (81-99); MONOCYTES # (AUTO) 1.8 (0.2-0.8); MONOCYTES % 12.5 % (4.4-11.3); NEUTROPHILS # (AUTO) 10.3 (2.1-6.9); NEUTROPHILS % 71.4 % (38.7-80.0); PLATELET COUNT 51 x10e3/uL (140-360); RED BLOOD COUNT 2.51 x10e6/uL (4.3-5.7)
[2022-03-28 05:39] LABS: ALBUMIN 2.4 g/dL (3.5-5.0); ALBUMIN/GLOBULIN RATIO 0.5 (0.8-2.0); ANION GAP 18.6 mmol/L (8-16); CREATININE, SERUM 3.66 mg/dL (0.72-1.25); POTASSIUM 4.6 mmol/L (3.5-5.1)
[2022-03-28] MEDS: MIDODRINE HCL 5 MG TABLET PO SCH ×3 (06:00→21:00)
[2022-03-28 07:50] LABS: INR 1.39; PROTHROMBIN TIME 18.2 seconds (11.9-14.5)
[2022-03-28 08:07] LABS: ABG PH 7.37 (7.35-7.45)
[2022-03-28 08:08] LABS: ABG HCO3 20 mmol/L (22-26); ABG PCO2 36 mmHg (35-45); ABG PO2 101 mmHg (80-105); ABG TCO2 21
[2022-03-28] MEDS: LACTULOSE SYRUP 20 GM/30 ML UDC PO SCH ×2 (08:21→17:21)
[2022-03-28] MEDS: MULTIVITAMINS/MINERALS TAB PO SCH (08:21)
[2022-03-28] MEDS: NYSTATIN 15 GM POWDER UD BTL TOP SCH ×2 (08:22→17:21)
[2022-03-28] MEDS: SODIUM BICARBONATE 650 MG TAB PO SCH ×2 (08:22→17:21)
[2022-03-28] MEDS: BALSAM PERU/CASTOR OIL 60 GM OINT...G. TP SCH (08:22)
[2022-03-28] MEDS ORDERED: LIDOCAINE 1% W/EPINEPHRINE 20 ML VIAL ONE (12:18)
[2022-03-28] MEDS ORDERED: BUPIVACAINE 0.25% 30ML SDV ONE (12:18)
[2022-03-28] MEDS: PROPOFOL IV EMULSION 10MG/ML 100 ML IV PRN ×2 (13:40)
[2022-03-28] MEDS: NOREPINEPHRINE 8 MG/D5W 250 ML 250 ML IV PRN ×3 (13:40→21:00)
[2022-03-28] MEDS: VASOPRESSIN 60 UNIT in DEXTROSE 5% 50ML 57 ML IV PRN ×3 (20:51)
[2022-03-28] MEDS: SIMVASTATIN 20 MG TAB PO SCH (21:00)
[2022-03-28] MEDS ORDERED: HEPARIN SOD (PORCINE) 1000 UNIT/ML SDV IV PRN (22:15)
[2022-03-29] VITALS (97 sets, daily range): BP systolic 93–127; BP diastolic 36–55
[2022-03-29] MEDS: PROPOFOL IV EMULSION 10MG/ML 100 ML IV PRN (03:54)
[2022-03-29] MEDS: NOREPINEPHRINE 8 MG/D5W 250 ML 250 ML IV PRN (03:55)
[2022-03-29 05:05] LABS: BASOPHILS # (AUTO) 0.1 (0.0-0.1); BASOPHILS % 0.6 % (0.0-1.0); EOSINOPHILS # (AUTO) 0.3 (0.0-0.4); EOSINOPHILS % 2.1 % (0.0-6.0); HEMATOCRIT 26.5 % (38.2-49.6); HEMOGLOBIN 8.2 g/dL (14.0-18.0); LYMPHOCYTES # (AUTO) 1.1 (1.0-3.2); LYMPHOCYTES % 9.1 % (18.0-39.1); MEAN CORPUSCULAR HEMOGLOBIN 33.6 pg (28-32); MEAN CORPUSCULAR HGB CONC 30.9 g/dL (31-35); MEAN CORPUSCULAR VOLUME 108.6 fL (81-99); MONOCYTES # (AUTO) 1.3 (0.2-0.8); MONOCYTES % 10.7 % (4.4-11.3); NEUTROPHILS # (AUTO) 9.6 (2.1-6.9); NEUTROPHILS % 77.1 % (38.7-80.0); PLATELET COUNT 56 x10e3/uL (140-360); RED BLOOD COUNT 2.44 x10e6/uL (4.3-5.7); RED CELL DISTRIBUTION WIDTH 29.4 % (11.7-14.4)
[2022-03-29] MEDS: MIDODRINE HCL 5 MG TABLET PO SCH ×3 (05:19→21:08)
[2022-03-29 05:43] LABS: ALBUMIN 2.2 g/dL (3.5-5.0); ALBUMIN/GLOBULIN RATIO 0.4 (0.8-2.0); ANION GAP 15.9 mmol/L (8-16); CALCIUM 7.7 mg/dL (8.4-10.2); CREATININE, SERUM 2.74 mg/dL (0.72-1.25); POTASSIUM 3.9 mmol/L (3.5-5.1)
[2022-03-29 08:14] LABS: ABG HCO3 22 mmol/L (22-26); ABG PCO2 35 mmHg (35-45); ABG PH 7.41 (7.35-7.45); ABG PO2 113 mmHg (80-105); ABG TCO2 23
[2022-03-29] MEDS: SODIUM BICARBONATE 650 MG TAB PO SCH ×2 (08:55→16:44)
[2022-03-29] MEDS: NYSTATIN 15 GM POWDER UD BTL TOP SCH ×2 (08:55→16:44)
[2022-03-29] MEDS: BALSAM PERU/CASTOR OIL 60 GM OINT...G. TP SCH (08:55)
[2022-03-29] MEDS: MULTIVITAMINS/MINERALS TAB PO SCH (08:55)
[2022-03-29] MEDS: LACTULOSE SYRUP 20 GM/30 ML UDC PO SCH ×2 (08:55→16:44)
[2022-03-29] MEDS: OCTREOTIDE ACETATE 500 MCG in SODIUM CHLORIDE 0.9% 250ML 250 ML IV SCH ×2 (09:31→21:08)
[2022-03-29 10:49] LABS: PLATELET ESTIMATE MARKEDLY DECREASED; PLATELET MORPHOLOGY COMMENT FEW LARGE
[2022-03-29 10:50] LABS: ANISOCYTOSIS MODERATE; RBC MORPHOLOGY COMMENT ABNORMAL
[2022-03-29 10:51] LABS: POLYCHROMASIA FEW
[2022-03-29] MEDS ORDERED: DEXMEDETOMIDINE 400MCG/NS100ML 100 ML IV PRN (13:00)
[2022-03-29] MEDS ORDERED: ALBUMIN 25% 12.5GM 0.25 GM/ML BTL IV SCH (15:45)
[2022-03-29 16:15] LABS: ABG HCO3 24 mmol/L (22-26); ABG PCO2 43 mmHg (35-45); ABG PH 7.34 (7.35-7.45); ABG PO2 113 mmHg (80-105); ABG TCO2 25
[2022-03-29] MEDS ORDERED: CALCIUM GLUCONATE 10% INJ 9.3 MEQ in SODIUM CHLORIDE 0.9% 100 ML 100 ML IV ONE (16:30)
[2022-03-29] MEDS ORDERED: FUROSEMIDE INJ 10 MG/ML 4 ML VIAL IV ONE (16:35)
[2022-03-29] MEDS: ALBUMIN 25% 12.5GM 50ML 50 ML IV SCH ×2 (16:42→22:13)
[2022-03-29] MEDS: SODIUM BICARBONATE 8.4% SYRING 75 ML in SODIUM CHLORIDE 0.45% 1,000 ML IV SCH (17:31)
[2022-03-29] MEDS: SIMVASTATIN 20 MG TAB PO SCH (21:08)
[2022-03-30] VITALS (81 sets, daily range): BP systolic 100–132; BP diastolic 32–51
[2022-03-30] MEDS: OCTREOTIDE ACETATE 500 MCG in SODIUM CHLORIDE 0.9% 250ML 250 ML IV SCH ×2 (00:51→13:56)
[2022-03-30] MEDS: ALBUMIN 25% 12.5GM 50ML 50 ML IV SCH ×5 (04:03→23:00)
[2022-03-30 04:58] LABS: BASOPHILS # (AUTO) 0.1 (0.0-0.1); BASOPHILS % 0.7 % (0.0-1.0); EOSINOPHILS # (AUTO) 0.4 (0.0-0.4); HEMATOCRIT 23.6 % (38.2-49.6); HEMOGLOBIN 7.2 g/dL (14.0-18.0); LYMPHOCYTES % 10.8 % (18.0-39.1); MEAN CORPUSCULAR HEMOGLOBIN 33.6 pg (28-32); MEAN CORPUSCULAR HGB CONC 30.5 g/dL (31-35); MEAN CORPUSCULAR VOLUME 110.3 fL (81-99); MONOCYTES # (AUTO) 0.9 (0.2-0.8); MONOCYTES % 9.8 % (4.4-11.3); NEUTROPHILS # (AUTO) 6.7 (2.1-6.9); NEUTROPHILS % 74.3 % (38.7-80.0); RED BLOOD COUNT 2.14 x10e6/uL (4.3-5.7); RED CELL DISTRIBUTION WIDTH 29.3 % (11.7-14.4)
[2022-03-30 05:18] LABS: ALBUMIN 2.4 g/dL (3.5-5.0); ALBUMIN/GLOBULIN RATIO 0.6 (0.8-2.0); ANION GAP 15.5 mmol/L (8-16); CALCIUM 7.6 mg/dL (8.4-10.2); CREATININE, SERUM 3.12 mg/dL (0.72-1.25); POTASSIUM 3.5 mmol/L (3.5-5.1)
[2022-03-30] MEDS: NOREPINEPHRINE 8 MG/D5W 250 ML 250 ML IV PRN (05:24)
[2022-03-30] MEDS: MIDODRINE HCL 5 MG TABLET PO SCH ×3 (05:24→22:00)
[2022-03-30 05:36] LABS: PLATELET COUNT 48 x10e3/uL (140-360)
[2022-03-30 05:54] LABS: MAGNESIUM 2.1 MG/DL (1.3-2.1); PHOSPHORUS 7.9 MG/DL (2.3-4.7)
[2022-03-30 08:26] LABS: ABG HCO3 24 mmol/L (22-26); ABG PCO2 44 mmHg (35-45); ABG PH 7.35 (7.35-7.45); ABG PO2 120 mmHg (80-105); ABG TCO2 25
[2022-03-30] MEDS: MULTIVITAMINS/MINERALS TAB PO SCH (09:03)
[2022-03-30] MEDS: SODIUM BICARBONATE 650 MG TAB PO SCH ×2 (09:03→17:21)
[2022-03-30] MEDS: BALSAM PERU/CASTOR OIL 60 GM OINT...G. TP SCH (09:03)
[2022-03-30] MEDS: NYSTATIN 15 GM POWDER UD BTL TOP SCH ×2 (09:03→17:21)
[2022-03-30] MEDS: SODIUM BICARBONATE 8.4% SYRING 75 ML in SODIUM CHLORIDE 0.45% 1,000 ML IV SCH (09:03)
[2022-03-30] MEDS: LACTULOSE SYRUP 20 GM/30 ML UDC PO SCH ×2 (09:03→17:09)
[2022-03-30] MEDS ORDERED: POTASSIUM CHLORIDE 20 MEQ TAB CR PO ONE (10:30)
[2022-03-30] MEDS ORDERED: CALCIUM GLUCONATE 10% INJ 9.3 MEQ in SODIUM CHLORIDE 0.9% 100 ML 100 ML IV ONE (10:35)
[2022-03-30] MEDS ORDERED: SODIUM CHLORIDE 0.9% 250ML 250 ML IV ONE ×2 (10:35→11:45)
[2022-03-30] MEDS ORDERED: KCL 20 MEQ PACKET/ ORAL SOLN PO ONE (12:15)
[2022-03-30] MEDS: CALCIUM ACETATE 667 MG GELCAP GT SCH ×2 (14:02→21:04)
[2022-03-30] MEDS: SIMVASTATIN 20 MG TAB PO SCH (21:04)
[2022-03-31] VITALS (29 sets, daily range): BP systolic 96–123; BP diastolic 39–57
[2022-03-31] MEDS: OCTREOTIDE ACETATE 500 MCG in SODIUM CHLORIDE 0.9% 250ML 250 ML IV SCH ×3 (02:11→23:30)
[2022-03-31] MEDS: ALBUMIN 25% 12.5GM 50ML 50 ML IV SCH ×2 (04:41→11:24)
[2022-03-31 05:11] LABS: BASOPHILS # (AUTO) 0.1 (0.0-0.1); BASOPHILS % 0.6 % (0.0-1.0); EOSINOPHILS # (AUTO) 0.4 (0.0-0.4); EOSINOPHILS % 4.2 % (0.0-6.0); HEMOGLOBIN 8.6 g/dL (14.0-18.0); LYMPHOCYTES # (AUTO) 0.7 (1.0-3.2); LYMPHOCYTES % 7.8 % (18.0-39.1); MEAN CORPUSCULAR HEMOGLOBIN 33.6 pg (28-32); MEAN CORPUSCULAR HGB CONC 31.9 g/dL (31-35); MEAN CORPUSCULAR VOLUME 105.5 fL (81-99); MONOCYTES # (AUTO) 0.6 (0.2-0.8); MONOCYTES % 7.2 % (4.4-11.3); NEUTROPHILS # (AUTO) 6.7 (2.1-6.9); RED BLOOD COUNT 2.56 x10e6/uL (4.3-5.7); RED CELL DISTRIBUTION WIDTH 28.7 % (11.7-14.4)
[2022-03-31] MEDS: MIDODRINE HCL 5 MG TABLET PO SCH ×3 (05:17→21:47)
[2022-03-31 05:34] LABS: ALBUMIN 2.6 g/dL (3.5-5.0); ALBUMIN/GLOBULIN RATIO 0.7 (0.8-2.0); ANION GAP 15.2 mmol/L (8-16); CALCIUM 7.7 mg/dL (8.4-10.2); CREATININE, SERUM 2.87 mg/dL (0.72-1.25); PHOSPHORUS 5.9 MG/DL (2.3-4.7); POTASSIUM 3.2 mmol/L (3.5-5.1)
[2022-03-31 05:45] LABS: PLATELET COUNT 24 x10e3/uL (140-360)
[2022-03-31 08:18] LABS: ABG HCO3 26 mmol/L (22-26); ABG PCO2 46 mmHg (35-45); ABG PH 7.37 (7.35-7.45); ABG PO2 90 mmHg (80-105); ABG TCO2 28
[2022-03-31] MEDS: SODIUM BICARBONATE 8.4% SYRING 75 ML in SODIUM CHLORIDE 0.45% 1,000 ML IV SCH (08:24)
[2022-03-31] MEDS: MULTIVITAMINS/MINERALS TAB PO SCH (08:51)
[2022-03-31] MEDS: CALCIUM ACETATE 667 MG GELCAP GT SCH ×3 (08:51→21:00)
[2022-03-31] MEDS: LACTULOSE SYRUP 20 GM/30 ML UDC PO SCH ×2 (08:51→16:28)
[2022-03-31] MEDS: SODIUM BICARBONATE 650 MG TAB PO SCH ×2 (08:51→16:28)
[2022-03-31] MEDS: NYSTATIN 15 GM POWDER UD BTL TOP SCH ×2 (09:42→16:28)
[2022-03-31] MEDS: BALSAM PERU/CASTOR OIL 60 GM OINT...G. TP SCH ×2 (09:42)
[2022-03-31] MEDS: POTASSIUM CHLORIDE 20MEQ/100ML 100 ML IV SCH ×2 (15:00→17:36)
[2022-03-31] MEDS: SIMVASTATIN 20 MG TAB PO SCH (21:00)
[2022-04-01] VITALS (43 sets, daily range): BP systolic 88–107; BP diastolic 30–52
[2022-04-01] MEDS: SODIUM BICARBONATE 8.4% SYRING 75 ML in SODIUM CHLORIDE 0.45% 1,000 ML IV SCH (04:20)
[2022-04-01 05:04] LABS: BASOPHILS # (AUTO) 0.1 (0.0-0.1); EOSINOPHILS # (AUTO) 0.2 (0.0-0.4); LYMPHOCYTES # (AUTO) 0.8 (1.0-3.2); LYMPHOCYTES % 9.4 % (18.0-39.1); MEAN CORPUSCULAR HEMOGLOBIN 33.6 pg (28-32); MEAN CORPUSCULAR VOLUME 108.2 fL (81-99); MONOCYTES # (AUTO) 0.5 (0.2-0.8); MONOCYTES % 5.9 % (4.4-11.3); NEUTROPHILS # (AUTO) 6.5 (2.1-6.9); NEUTROPHILS % 80.3 % (38.7-80.0); RED BLOOD COUNT 2.68 x10e6/uL (4.3-5.7); RED CELL DISTRIBUTION WIDTH 28.9 % (11.7-14.4)
[2022-04-01 05:06] LABS: PLATELET COUNT 27 x10e3/uL (140-360)
[2022-04-01] MEDS: MIDODRINE HCL 5 MG TABLET PO SCH ×3 (05:16→22:00)
[2022-04-01 05:29] LABS: ALBUMIN 2.7 g/dL (3.5-5.0); ALBUMIN/GLOBULIN RATIO 0.7 (0.8-2.0); ANION GAP 17.8 mmol/L (8-16); CALCIUM 7.9 mg/dL (8.4-10.2); CREATININE, SERUM 3.41 mg/dL (0.72-1.25); POTASSIUM 3.8 mmol/L (3.5-5.1)
[2022-04-01 05:43] LABS: MAGNESIUM 2.1 MG/DL (1.3-2.1); PHOSPHORUS 7.1 MG/DL (2.3-4.7)
[2022-04-01] MEDS: OCTREOTIDE ACETATE 500 MCG in SODIUM CHLORIDE 0.9% 250ML 250 ML IV SCH ×2 (06:13→08:29)
[2022-04-01] MEDS: NYSTATIN 15 GM POWDER UD BTL TOP SCH (08:04)
[2022-04-01] MEDS: CALCIUM ACETATE 667 MG GELCAP GT SCH ×3 (08:04→21:00)
[2022-04-01] MEDS: LACTULOSE SYRUP 20 GM/30 ML UDC PO SCH ×2 (08:04→16:46)
[2022-04-01] MEDS: SODIUM BICARBONATE 650 MG TAB PO SCH ×2 (08:04→16:46)
[2022-04-01] MEDS: BALSAM PERU/CASTOR OIL 60 GM OINT...G. TP SCH (08:04)
[2022-04-01] MEDS: MULTIVITAMINS/MINERALS TAB PO SCH (08:04)
[2022-04-01] MEDS: SIMVASTATIN 20 MG TAB PO SCH (21:00)
[2022-04-01] MEDS ORDERED: ALBUMIN 25% 25GM 100ML 0.25 GM/ML BTL IV ONE (21:45)
[2022-04-01] MEDS ORDERED: VASOPRESSIN INJ 20 UNIT/ML VIAL ONE (21:55)
[2022-04-01] MEDS ORDERED: SODIUM CHLORIDE 0.9% 100 ML ONE (21:56)
[2022-04-01] MEDS ORDERED: DEXTROSE 5% 100ML 100 ML IV ONE (21:59)
[2022-04-01] MEDS: VASOPRESSIN 60 UNIT in DEXTROSE 5% 50ML 57 ML IV SCH (22:00)
[2022-04-02] VITALS (84 sets, daily range): BP systolic 85–100; BP diastolic 37–50
[2022-04-02] MEDS: OCTREOTIDE ACETATE 500 MCG in SODIUM CHLORIDE 0.9% 250ML 250 ML IV SCH ×3 (02:12→21:44)
[2022-04-02 04:43] LABS: BASOPHILS # (AUTO) 0.1 (0.0-0.1); EOSINOPHILS # (AUTO) 0.2 (0.0-0.4); EOSINOPHILS % 2.2 % (0.0-6.0); HEMATOCRIT 27.4 % (38.2-49.6); HEMOGLOBIN 8.5 g/dL (14.0-18.0); LYMPHOCYTES # (AUTO) 0.6 (1.0-3.2); LYMPHOCYTES % 7.7 % (18.0-39.1); MEAN CORPUSCULAR HEMOGLOBIN 33.9 pg (28-32); MEAN CORPUSCULAR VOLUME 109.2 fL (81-99); MONOCYTES # (AUTO) 0.7 (0.2-0.8); MONOCYTES % 8.9 % (4.4-11.3); NEUTROPHILS # (AUTO) 5.8 (2.1-6.9); NEUTROPHILS % 79.8 % (38.7-80.0); RED BLOOD COUNT 2.51 x10e6/uL (4.3-5.7); RED CELL DISTRIBUTION WIDTH 28.7 % (11.7-14.4)
[2022-04-02 04:45] LABS: PLATELET COUNT 20 x10e3/uL (140-360)
[2022-04-02 05:00] LABS: ALBUMIN 2.9 g/dL (3.5-5.0); ALBUMIN/GLOBULIN RATIO 0.7 (0.8-2.0); ALKALINE PHOSPHATASE 66 IU/L (40-150); ANION GAP 18.9 mmol/L (8-16); BLOOD UREA NITROGEN 33 mg/dL (7-26); BUN/CREATININE RATIO 12 (6-25); CARBON DIOXIDE 24 mmol/L (22-29); CHLORIDE 102 mmol/L (98-107); CREATININE, SERUM 2.86 mg/dL (0.72-1.25); GLUCOSE 71 mg/dL (74-118); MAGNESIUM 1.9 MG/DL (1.3-2.1); PHOSPHORUS 6.2 MG/DL (2.3-4.7); POTASSIUM 3.9 mmol/L (3.5-5.1); SODIUM 141 mmol/L (136-145)
[2022-04-02 05:46] LABS: ALANINE AMINOTRANSFERASE < 6 IU/L (0-55)
[2022-04-02] MEDS: MIDODRINE HCL 5 MG TABLET PO SCH ×3 (05:48→21:42)
[2022-04-02] MEDS: CALCIUM ACETATE 667 MG GELCAP GT SCH ×3 (08:11→22:09)
[2022-04-02] MEDS: MULTIVITAMINS/MINERALS TAB PO SCH (08:11)
[2022-04-02] MEDS: BALSAM PERU/CASTOR OIL 60 GM OINT...G. TP SCH (08:11)
[2022-04-02] MEDS: SODIUM BICARBONATE 650 MG TAB PO SCH ×2 (08:11→16:23)
[2022-04-02] MEDS: LACTULOSE SYRUP 20 GM/30 ML UDC PO SCH ×2 (08:11→16:23)
[2022-04-02 08:22] LABS: INR 1.65; PROTHROMBIN TIME 20.9 seconds (11.9-14.5)
[2022-04-02 08:23] LABS: PARTIAL THROMBOPLASTIN TIME 40.1 seconds (23.8-35.5)
[2022-04-02] MEDS ORDERED: PHYTONADIONE 10 MG/ML AMP IM NR (09:15)
[2022-04-02] MEDS: VASOPRESSIN 60 UNIT in DEXTROSE 5% 50ML 57 ML IV SCH ×2 (10:41→22:37)
[2022-04-02] MEDS: ALBUMIN 25% 25GM 100ML 0.25 GM/ML BTL IV SCH ×3 (11:14→23:08)
[2022-04-02] MEDS ORDERED: SODIUM CHLORIDE 0.9% 250ML 250 ML ONE (15:28)
[2022-04-02] MEDS: SIMVASTATIN 20 MG TAB PO SCH (21:42)
[2022-04-03] VITALS (90 sets, daily range): BP systolic 75–113; BP diastolic 30–53
[2022-04-03] MEDS: OCTREOTIDE ACETATE 500 MCG in SODIUM CHLORIDE 0.9% 250ML 250 ML IV SCH ×2 (00:28→20:02)
[2022-04-03] MEDS: ALBUMIN 25% 25GM 100ML 0.25 GM/ML BTL IV SCH (05:23)
[2022-04-03] MEDS: MIDODRINE HCL 5 MG TABLET PO SCH ×3 (05:24→20:58)
[2022-04-03 05:44] LABS: BASOPHILS # (AUTO) 0.1 (0.0-0.1); BASOPHILS % 0.8 % (0.0-1.0); EOSINOPHILS # (AUTO) 0.2 (0.0-0.4); EOSINOPHILS % 2.1 % (0.0-6.0); HEMATOCRIT 27.8 % (38.2-49.6); HEMOGLOBIN 8.4 g/dL (14.0-18.0); LYMPHOCYTES # (AUTO) 0.9 (1.0-3.2); LYMPHOCYTES % 10.8 % (18.0-39.1); MEAN CORPUSCULAR HGB CONC 30.2 g/dL (31-35); MEAN CORPUSCULAR VOLUME 112.6 fL (81-99); MONOCYTES # (AUTO) 0.9 (0.2-0.8); MONOCYTES % 10.1 % (4.4-11.3); NEUTROPHILS # (AUTO) 6.5 (2.1-6.9); NEUTROPHILS % 75.7 % (38.7-80.0); PLATELET COUNT 52 x10e3/uL (140-360); RED BLOOD COUNT 2.47 x10e6/uL (4.3-5.7); RED CELL DISTRIBUTION WIDTH 28.8 % (11.7-14.4)
[2022-04-03 06:29] LABS: ALBUMIN 3.8 g/dL (3.5-5.0); ALKALINE PHOSPHATASE 58 IU/L (40-150); ANION GAP 22.3 mmol/L (8-16); BLOOD UREA NITROGEN 45 mg/dL (7-26); BUN/CREATININE RATIO 12 (6-25); CALCIUM 8.5 mg/dL (8.4-10.2); CARBON DIOXIDE 22 mmol/L (22-29); CHLORIDE 101 mmol/L (98-107); CREATININE, SERUM 3.67 mg/dL (0.72-1.25); GLUCOSE 151 mg/dL (74-118); PHOSPHORUS 8.1 MG/DL (2.3-4.7); POTASSIUM 4.3 mmol/L (3.5-5.1); SODIUM 141 mmol/L (136-145)
[2022-04-03 06:30] LABS: ALANINE AMINOTRANSFERASE < 6 IU/L (0-55)
[2022-04-03] MEDS: CALCIUM ACETATE 667 MG GELCAP GT SCH ×3 (08:22→20:58)
[2022-04-03] MEDS: LACTULOSE SYRUP 20 GM/30 ML UDC PO SCH ×2 (08:22→16:38)
[2022-04-03] MEDS: SODIUM BICARBONATE 650 MG TAB PO SCH ×2 (08:22→16:38)
[2022-04-03] MEDS: BALSAM PERU/CASTOR OIL 60 GM OINT...G. TP SCH (08:22)
[2022-04-03] MEDS: MULTIVITAMINS/MINERALS TAB PO SCH (08:22)
[2022-04-03 08:46] LABS: EOSINOPHILS % (MANUAL) 2 % (0-7); LYMPHOCYTES % (MANUAL) 12 % (19-48); MONOCYTES % (MANUAL) 4 % (3.4-9.0); NEUTROPHILS % (MANUAL) 82 % (40-74); PLATELET ESTIMATE MODERATELY DECREASED; PLATELET MORPHOLOGY COMMENT NORMAL; RBC MORPHOLOGY COMMENT NORMAL
[2022-04-03 09:10] LABS: ABG HCO3 26 mmol/L (22-26); ABG PCO2 56 mmHg (35-45); ABG PH 7.26 (7.35-7.45); ABG PO2 199 mmHg (80-105); ABG TCO2 27
[2022-04-03] MEDS ORDERED: ALBUMIN 25% 25GM 100ML 0.25 GM/ML BTL IV NR (10:30)
[2022-04-03] MEDS ORDERED: DEXMEDETOMIDINE 400MCG/NS100ML 100 ML IV PRN (10:30)
[2022-04-03] MEDS: NOREPINEPHRINE 8 MG/D5W 250 ML 250 ML IV SCH (10:45)
[2022-04-03] MEDS: VASOPRESSIN 60 UNIT in DEXTROSE 5% 50ML 57 ML IV SCH (11:32)
[2022-04-03] MEDS: DEXMEDETOMIDINE 400MCG/NS100ML 100 ML IV PRN (11:32)
[2022-04-03 14:33] LABS: ABG HCO3 24 mmol/L (22-26); ABG PCO2 34 mmHg (35-45); ABG PH 7.45 (7.35-7.45); ABG PO2 295 mmHg (80-105); ABG TCO2 24
[2022-04-03] MEDS: SIMVASTATIN 20 MG TAB PO SCH (20:58)
[2022-04-03] MEDS ORDERED: FLUCONAZOLE 100 MG TAB ONE (20:58)
[2022-04-04] VITALS (98 sets, daily range): BP systolic 53–147; BP diastolic 29–81
[2022-04-04] MEDS: DEXMEDETOMIDINE 400MCG/NS100ML 100 ML IV PRN ×2 (04:05→12:23)
[2022-04-04] MEDS: OCTREOTIDE ACETATE 500 MCG in SODIUM CHLORIDE 0.9% 250ML 250 ML IV SCH ×3 (04:15→22:35)
[2022-04-04 05:36] LABS: BASOPHILS # (AUTO) 0.1 (0.0-0.1); BASOPHILS % 0.8 % (0.0-1.0); EOSINOPHILS # (AUTO) 0.6 (0.0-0.4); EOSINOPHILS % 5.5 % (0.0-6.0); HEMATOCRIT 29.7 % (38.2-49.6); HEMOGLOBIN 9.1 g/dL (14.0-18.0); LYMPHOCYTES # (AUTO) 1.7 (1.0-3.2); LYMPHOCYTES % 17.2 % (18.0-39.1); MEAN CORPUSCULAR HEMOGLOBIN 33.8 pg (28-32); MEAN CORPUSCULAR HGB CONC 30.6 g/dL (31-35); MEAN CORPUSCULAR VOLUME 110.4 fL (81-99); MONOCYTES # (AUTO) 1.1 (0.2-0.8); MONOCYTES % 10.5 % (4.4-11.3); NEUTROPHILS # (AUTO) 6.6 (2.1-6.9); NEUTROPHILS % 65.6 % (38.7-80.0); PLATELET COUNT 54 x10e3/uL (140-360); RED BLOOD COUNT 2.69 x10e6/uL (4.3-5.7)
[2022-04-04 05:58] LABS: ALBUMIN 3.6 g/dL (3.5-5.0); ALBUMIN/GLOBULIN RATIO 1.1 (0.8-2.0); ANION GAP 19.8 mmol/L (8-16); CALCIUM 8.6 mg/dL (8.4-10.2); CREATININE, SERUM 4.25 mg/dL (0.72-1.25); POTASSIUM 3.8 mmol/L (3.5-5.1)
[2022-04-04] MEDS: MIDODRINE HCL 5 MG TABLET PO SCH ×3 (06:21→22:27)
[2022-04-04] MEDS: CALCIUM ACETATE 667 MG GELCAP GT SCH ×3 (08:42→20:28)
[2022-04-04] MEDS: MULTIVITAMINS/MINERALS TAB PO SCH (08:42)
[2022-04-04] MEDS: SODIUM BICARBONATE 650 MG TAB PO SCH ×2 (08:42→16:32)
[2022-04-04] MEDS: LACTULOSE SYRUP 20 GM/30 ML UDC PO SCH ×2 (08:42→16:00)
[2022-04-04] MEDS: BALSAM PERU/CASTOR OIL 60 GM OINT...G. TP SCH (08:43)
[2022-04-04] MEDS: NOREPINEPHRINE 8 MG/D5W 250 ML 250 ML IV SCH ×2 (09:33→19:56)
[2022-04-04 11:51] LABS: ABG HCO3 27 mmol/L (22-26); ABG PCO2 38 mmHg (35-45); ABG PH 7.46 (7.35-7.45); ABG PO2 74 mmHg (80-105); ABG TCO2 28
[2022-04-04] MEDS: VASOPRESSIN 60 UNIT in DEXTROSE 5% 50ML 57 ML IV SCH ×2 (12:23→22:27)
[2022-04-04] MEDS: SIMVASTATIN 20 MG TAB PO SCH (20:28)
[2022-04-05] VITALS (71 sets, daily range): BP systolic 92–140; BP diastolic 36–72
[2022-04-05 05:12] LABS: BASOPHILS # (AUTO) 0.1 (0.0-0.1); BASOPHILS % 0.6 % (0.0-1.0); EOSINOPHILS # (AUTO) 0.2 (0.0-0.4); EOSINOPHILS % 1.5 % (0.0-6.0); HEMATOCRIT 28.3 % (38.2-49.6); HEMOGLOBIN 8.8 g/dL (14.0-18.0); LYMPHOCYTES # (AUTO) 1.3 (1.0-3.2); MEAN CORPUSCULAR HEMOGLOBIN 34.2 pg (28-32); MEAN CORPUSCULAR HGB CONC 31.1 g/dL (31-35); MEAN CORPUSCULAR VOLUME 110.1 fL (81-99); MONOCYTES # (AUTO) 1.2 (0.2-0.8); NEUTROPHILS % 74.5 % (38.7-80.0); RED BLOOD COUNT 2.57 x10e6/uL (4.3-5.7); RED CELL DISTRIBUTION WIDTH 27.3 % (11.7-14.4)
[2022-04-05 05:27] LABS: MAGNESIUM 1.9 MG/DL (1.3-2.1); PHOSPHORUS 5.2 MG/DL (2.3-4.7)
[2022-04-05 05:29] LABS: ALBUMIN 3.4 g/dL (3.5-5.0); ALBUMIN/GLOBULIN RATIO 0.9 (0.8-2.0); ANION GAP 18.7 mmol/L (8-16); CREATININE, SERUM 3.88 mg/dL (0.72-1.25); PLATELET COUNT 38 x10e3/uL (140-360); POTASSIUM 3.7 mmol/L (3.5-5.1)
[2022-04-05] MEDS: MIDODRINE HCL 5 MG TABLET PO SCH ×3 (05:51→21:41)
[2022-04-05 06:38] LABS: ABG HCO3 25 mmol/L (22-26); ABG PCO2 31 mmHg (35-45); ABG PH 7.51 (7.35-7.45); ABG PO2 92 mmHg (80-105); ABG TCO2 26
[2022-04-05] MEDS: DEXMEDETOMIDINE 400MCG/NS100ML 100 ML IV PRN ×2 (06:38→21:41)
[2022-04-05] MEDS: LACTULOSE SYRUP 20 GM/30 ML UDC PO SCH ×2 (08:42→17:09)
[2022-04-05] MEDS: SODIUM BICARBONATE 650 MG TAB PO SCH ×2 (08:42→17:09)
[2022-04-05] MEDS: MULTIVITAMINS/MINERALS TAB PO SCH (08:42)
[2022-04-05] MEDS: BALSAM PERU/CASTOR OIL 60 GM OINT...G. TP SCH (08:42)
[2022-04-05] MEDS: CALCIUM ACETATE 667 MG GELCAP GT SCH ×3 (08:42→21:28)
[2022-04-05] MEDS: OCTREOTIDE ACETATE 500 MCG in SODIUM CHLORIDE 0.9% 250ML 250 ML IV SCH (09:21)
[2022-04-05 09:22] LABS: PLATELET ESTIMATE MARKEDLY DECREASED; PLATELET MORPHOLOGY COMMENT NORMAL
[2022-04-05 09:23] LABS: ANISOCYTOSIS MODERATE; OVALOCYTES FEW; RBC MORPHOLOGY COMMENT ABNORMAL
[2022-04-05 09:24] LABS: HYPOCHROMASIA MODERATE
[2022-04-05] MEDS: VASOPRESSIN 60 UNIT in DEXTROSE 5% 50ML 57 ML IV SCH (13:59)
[2022-04-05] MEDS ORDERED: ACETAMINOPHEN 325 MG SUPP PR PRN (17:15)
[2022-04-05] MEDS: SIMVASTATIN 20 MG TAB PO SCH (21:28)
[2022-04-05] MEDS ORDERED: ACETAMINOPHEN 325 MG TAB ONE (22:30)
[2022-04-06] VITALS (71 sets, daily range): BP systolic 86–118; BP diastolic 29–68
[2022-04-06] MEDS: VASOPRESSIN 60 UNIT in DEXTROSE 5% 50ML 57 ML IV SCH (03:00)
[2022-04-06] MEDS: DEXMEDETOMIDINE 400MCG/NS100ML 100 ML IV PRN ×2 (03:00→07:48)
[2022-04-06] MEDS: OCTREOTIDE ACETATE 500 MCG in SODIUM CHLORIDE 0.9% 250ML 250 ML IV SCH ×4 (03:28→22:35)
[2022-04-06 05:19] LABS: BASOPHILS # (AUTO) 0.1 (0.0-0.1); BASOPHILS % 0.5 % (0.0-1.0); EOSINOPHILS # (AUTO) 0.2 (0.0-0.4); EOSINOPHILS % 2.2 % (0.0-6.0); HEMATOCRIT 27.5 % (38.2-49.6); HEMOGLOBIN 8.5 g/dL (14.0-18.0); LYMPHOCYTES # (AUTO) 1.3 (1.0-3.2); LYMPHOCYTES % 11.8 % (18.0-39.1); MEAN CORPUSCULAR HGB CONC 30.9 g/dL (31-35); MONOCYTES # (AUTO) 1.1 (0.2-0.8); MONOCYTES % 9.8 % (4.4-11.3); NEUTROPHILS # (AUTO) 8.3 (2.1-6.9); NEUTROPHILS % 75.2 % (38.7-80.0); RED CELL DISTRIBUTION WIDTH 27.1 % (11.7-14.4)
[2022-04-06 05:44] LABS: ALBUMIN 3.1 g/dL (3.5-5.0); ALBUMIN/GLOBULIN RATIO 0.8 (0.8-2.0); ANION GAP 17.9 mmol/L (8-16); CALCIUM 7.8 mg/dL (8.4-10.2); CREATININE, SERUM 4.5 mg/dL (0.72-1.25); POTASSIUM 3.9 mmol/L (3.5-5.1)
[2022-04-06 05:57] LABS: PLATELET COUNT 32 x10e3/uL (140-360)
[2022-04-06] MEDS: MIDODRINE HCL 5 MG TABLET PO SCH ×3 (05:59→21:30)
[2022-04-06 07:15] LABS: ABG HCO3 23 mmol/L (22-26); ABG PCO2 34 mmHg (35-45); ABG PH 7.44 (7.35-7.45); ABG PO2 87 mmHg (80-105); ABG TCO2 24
[2022-04-06] MEDS: BALSAM PERU/CASTOR OIL 60 GM OINT...G. TP SCH (09:32)
[2022-04-06] MEDS: LACTULOSE SYRUP 20 GM/30 ML UDC PO SCH ×2 (09:32→17:00)
[2022-04-06] MEDS: CALCIUM ACETATE 667 MG GELCAP GT SCH ×3 (09:32→20:30)
[2022-04-06] MEDS: MULTIVITAMINS/MINERALS TAB PO SCH (09:32)
[2022-04-06] MEDS: SODIUM BICARBONATE 650 MG TAB PO SCH ×2 (09:32→17:21)
[2022-04-06] MEDS ORDERED: ALBUMIN 25% 25GM 100ML 0.25 GM/ML BTL IV ONE (09:45)
[2022-04-06] MEDS ORDERED: ALBUMIN 25% 25GM 100ML 100 ML IV ONE (10:30)
[2022-04-06] MEDS ORDERED: PHYTONADIONE 10 MG/ML AMP IV ONE (10:30)
[2022-04-06] MEDS: NOREPINEPHRINE 8 MG/D5W 250 ML 250 ML IV SCH (10:39)
[2022-04-06 10:45] LABS: BAND NEUTROPHILS % (MANUAL) 1 %; EOSINOPHILS % (MANUAL) 2 % (0-7); LYMPHOCYTES % (MANUAL) 17 % (19-48); MONOCYTES % (MANUAL) 10 % (3.4-9.0); NEUTROPHILS % (MANUAL) 70 % (40-74); PLATELET ESTIMATE MARKEDLY DECREASED; PLATELET MORPHOLOGY COMMENT NORMAL
[2022-04-06 10:46] LABS: POLYCHROMASIA FEW; RBC MORPHOLOGY COMMENT ABNORMAL
[2022-04-06 10:47] LABS: ANISOCYTOSIS SLIGHT; ELLIPTOCYTE, RBC F; OVALOCYTES FEW; POIKILOCYTOSIS SLIGHT
[2022-04-06] MEDS: SIMVASTATIN 20 MG TAB PO SCH (20:30)
[2022-04-07] VITALS (88 sets, daily range): BP systolic 83–121; BP diastolic 34–56
[2022-04-07] MEDS: NOREPINEPHRINE 8 MG/D5W 250 ML 250 ML IV SCH ×4 (00:10→22:16)
[2022-04-07] MEDS: DEXMEDETOMIDINE 400MCG/NS100ML 100 ML IV PRN ×3 (00:11→20:14)
[2022-04-07 04:57] LABS: BASOPHILS # (AUTO) 0.1 (0.0-0.1); BASOPHILS % 0.5 % (0.0-1.0); EOSINOPHILS # (AUTO) 0.1 (0.0-0.4); EOSINOPHILS % 1.4 % (0.0-6.0); HEMATOCRIT 27.2 % (38.2-49.6); HEMOGLOBIN 8.4 g/dL (14.0-18.0); LYMPHOCYTES # (AUTO) 0.7 (1.0-3.2); LYMPHOCYTES % 7.5 % (18.0-39.1); MEAN CORPUSCULAR HEMOGLOBIN 34.4 pg (28-32); MEAN CORPUSCULAR HGB CONC 30.9 g/dL (31-35); MEAN CORPUSCULAR VOLUME 111.5 fL (81-99); NEUTROPHILS # (AUTO) 7.8 (2.1-6.9); NEUTROPHILS % 80.2 % (38.7-80.0); RED BLOOD COUNT 2.44 x10e6/uL (4.3-5.7); RED CELL DISTRIBUTION WIDTH 26.6 % (11.7-14.4)
[2022-04-07 04:58] LABS: PLATELET COUNT 36 x10e3/uL (140-360)
[2022-04-07 05:28] LABS: ALBUMIN 3.2 g/dL (3.5-5.0); ALBUMIN/GLOBULIN RATIO 0.8 (0.8-2.0); ANION GAP 20.1 mmol/L (8-16); CALCIUM 8.1 mg/dL (8.4-10.2); CREATININE, SERUM 3.58 mg/dL (0.72-1.25); POTASSIUM 4.1 mmol/L (3.5-5.1)
[2022-04-07] MEDS: MIDODRINE HCL 5 MG TABLET PO SCH ×3 (05:28→21:05)
[2022-04-07] MEDS: VASOPRESSIN 60 UNIT in DEXTROSE 5% 50ML 57 ML IV SCH ×2 (05:29→20:15)
[2022-04-07 07:57] LABS: ANISOCYTOSIS MODERATE; HYPOCHROMASIA SLIGHT; PLATELET ESTIMATE MARKEDLY DECREASED; PLATELET MORPHOLOGY COMMENT NORMAL; RBC MORPHOLOGY COMMENT ABNORMAL
[2022-04-07] MEDS: CALCIUM ACETATE 667 MG GELCAP GT SCH ×3 (08:19→20:15)
[2022-04-07] MEDS: FOLIC ACID 1 MG TAB PO SCH (08:19)
[2022-04-07] MEDS: SODIUM BICARBONATE 650 MG TAB PO SCH ×2 (08:20→17:28)
[2022-04-07] MEDS: MULTIVITAMINS/MINERALS TAB PO SCH (08:20)
[2022-04-07] MEDS: BALSAM PERU/CASTOR OIL 60 GM OINT...G. TP SCH (08:20)
[2022-04-07] MEDS: LACTULOSE SYRUP 20 GM/30 ML UDC PO SCH ×2 (08:20→17:28)
[2022-04-07] MEDS: OCTREOTIDE ACETATE 500 MCG in SODIUM CHLORIDE 0.9% 250ML 250 ML IV SCH ×3 (08:52→18:42)
[2022-04-07 09:13] LABS: ABG HCO3 22 mmol/L (22-26); ABG PCO2 36 mmHg (35-45); ABG PH 7.41 (7.35-7.45); ABG PO2 139 mmHg (80-105); ABG TCO2 23
[2022-04-07] MEDS ORDERED: Morphine 2mg Syringe 2 MG/ML SYR IV PRN (13:45)
[2022-04-07] MEDS: SIMVASTATIN 20 MG TAB PO SCH (20:15)
[2022-04-08] VITALS (85 sets, daily range): BP systolic 85–122; BP diastolic 18–54
[2022-04-08] MEDS: DEXMEDETOMIDINE 400MCG/NS100ML 100 ML IV PRN ×3 (01:36→18:39)
[2022-04-08] MEDS: OCTREOTIDE ACETATE 500 MCG in SODIUM CHLORIDE 0.9% 250ML 250 ML IV SCH (04:44)
[2022-04-08] MEDS: MIDODRINE HCL 5 MG TABLET PO SCH ×3 (05:15→21:42)
[2022-04-08 05:22] LABS: BASOPHILS % 0.4 % (0.0-1.0); EOSINOPHILS # (AUTO) 0.1 (0.0-0.4); EOSINOPHILS % 0.9 % (0.0-6.0); HEMOGLOBIN 7.9 g/dL (14.0-18.0); LYMPHOCYTES # (AUTO) 0.8 (1.0-3.2); LYMPHOCYTES % 7.9 % (18.0-39.1); MEAN CORPUSCULAR HEMOGLOBIN 34.8 pg (28-32); MEAN CORPUSCULAR HGB CONC 31.6 g/dL (31-35); MEAN CORPUSCULAR VOLUME 110.1 fL (81-99); MONOCYTES % 9.9 % (4.4-11.3); NEUTROPHILS # (AUTO) 8.1 (2.1-6.9); NEUTROPHILS % 80.6 % (38.7-80.0); RED BLOOD COUNT 2.27 x10e6/uL (4.3-5.7); RED CELL DISTRIBUTION WIDTH 26.5 % (11.7-14.4)
[2022-04-08 05:24] LABS: PLATELET COUNT 24 x10e3/uL (140-360)
[2022-04-08 05:33] LABS: MAGNESIUM 1.8 MG/DL (1.3-2.1); PHOSPHORUS 5.7 MG/DL (2.3-4.7)
[2022-04-08 05:37] LABS: ALBUMIN/GLOBULIN RATIO 0.8 (0.8-2.0); CREATININE, SERUM 4.27 mg/dL (0.72-1.25)
[2022-04-08] MEDS: VASOPRESSIN 60 UNIT in DEXTROSE 5% 50ML 57 ML IV SCH ×3 (06:19→20:36)
[2022-04-08] MEDS: BALSAM PERU/CASTOR OIL 60 GM OINT...G. TP SCH (07:41)
[2022-04-08] MEDS ORDERED: POTASSIUM CHLORIDE 10MEQ EA PO ONE (07:45)
[2022-04-08] MEDS: MULTIVITAMINS/MINERALS TAB PO SCH (09:23)
[2022-04-08] MEDS: FOLIC ACID 1 MG TAB PO SCH (09:23)
[2022-04-08] MEDS: CALCIUM ACETATE 667 MG GELCAP GT SCH ×3 (09:23→20:36)
[2022-04-08] MEDS: SODIUM BICARBONATE 650 MG TAB PO SCH ×2 (09:23→17:10)
[2022-04-08] MEDS: LACTULOSE SYRUP 20 GM/30 ML UDC PO SCH ×2 (09:23→17:00)
[2022-04-08] MEDS ORDERED: EPOETIN ALFA-EPBX 10,000 UNIT/ML VIAL SC SCH (17:00)
[2022-04-08] MEDS: SIMVASTATIN 20 MG TAB PO SCH (20:36)
[2022-04-09] VITALS (67 sets, daily range): BP systolic 69–123; BP diastolic 27–60
[2022-04-09] MEDS: DEXMEDETOMIDINE 400MCG/NS100ML 100 ML IV PRN (00:01)
[2022-04-09] MEDS: NOREPINEPHRINE 8 MG/D5W 250 ML 250 ML IV SCH (01:30)
[2022-04-09] MEDS: OCTREOTIDE ACETATE 500 MCG in SODIUM CHLORIDE 0.9% 250ML 250 ML IV SCH (02:10)
[2022-04-09] MEDS: MIDODRINE HCL 5 MG TABLET PO SCH ×3 (05:58→20:02)
[2022-04-09] MEDS: CALCIUM ACETATE 667 MG GELCAP GT SCH ×3 (07:45→20:02)
[2022-04-09] MEDS: LACTULOSE SYRUP 20 GM/30 ML UDC PO SCH (07:45)
[2022-04-09] MEDS: FOLIC ACID 1 MG TAB PO SCH (07:45)
[2022-04-09] MEDS: BALSAM PERU/CASTOR OIL 60 GM OINT...G. TP SCH (07:46)
[2022-04-09] MEDS: SODIUM BICARBONATE 650 MG TAB PO SCH ×2 (07:46→17:00)
[2022-04-09] MEDS: MULTIVITAMINS/MINERALS TAB PO SCH (07:46)
[2022-04-09] MEDS: Morphine 2mg Syringe 2 MG/ML SYR IV PRN ×2 (15:45→23:51)
[2022-04-09] MEDS: VASOPRESSIN 60 UNIT in DEXTROSE 5% 50ML 57 ML IV SCH (20:01)
[2022-04-10] VITALS (37 sets, daily range): BP systolic 71–88; BP diastolic 23–36
[2022-04-10] MEDS: Morphine 2mg Syringe 2 MG/ML SYR IV PRN ×3 (07:32→23:05)
[2022-04-10] MEDS: FOLIC ACID 1 MG TAB PO SCH (09:00)
[2022-04-10] MEDS: SODIUM BICARBONATE 650 MG TAB PO SCH ×2 (09:00→16:33)
[2022-04-10] MEDS: CALCIUM ACETATE 667 MG GELCAP GT SCH ×3 (09:00→20:08)
[2022-04-10] MEDS: BALSAM PERU/CASTOR OIL 60 GM OINT...G. TP SCH (10:22)
[2022-04-10] MEDS: NOREPINEPHRINE 8 MG/D5W 250 ML 250 ML IV SCH (10:30)
[2022-04-10] MEDS: MIDODRINE HCL 5 MG TABLET PO SCH ×2 (14:00→20:09)
[2022-04-10] MEDS: VASOPRESSIN 60 UNIT in DEXTROSE 5% 50ML 57 ML IV SCH (20:09)
[2022-04-11] VITALS (17 sets, daily range): BP systolic 40–70; BP diastolic 18–27
[2022-04-11] MEDS: MIDODRINE HCL 5 MG TABLET PO SCH (05:41)
[2022-04-11] MEDS: Morphine 2mg Syringe 2 MG/ML SYR IV PRN ×2 (08:11→11:21)
[2022-04-11] MEDS: CALCIUM ACETATE 667 MG GELCAP GT SCH (08:39)
[2022-04-11] MEDS: FOLIC ACID 1 MG TAB PO SCH (08:40)
[2022-04-11] MEDS: SODIUM BICARBONATE 650 MG TAB PO SCH (08:40)
[2022-04-11] MEDS: BALSAM PERU/CASTOR OIL 60 GM OINT...G. TP SCH (08:40)
[2022-04-11] MEDS: NOREPINEPHRINE 8 MG/D5W 250 ML 250 ML IV SCH (08:53)
== END 2022-04-11 15:47 | disposition expired | DRG 870 ==
LOC: ER 12:46 → ERHOLD 15:21 → ICU 17:18
PROVIDERS: ADMIT Internal Medicine; ATTEND Internal Medicine
PROC: 30243K1 Transfusion of Nonautologous Frozen Plasma into Central Vein, Percutaneous Approach (ICD-10-PCS; 2022-03-10)
PROC: 30243N1 Transfusion of Nonautologous Red Blood Cells into Central Vein, Percutaneous Approach (ICD-10-PCS; 2022-03-10)
PROC: 5A0935A Assistance with Respiratory Ventilation, Less than 24 Consecutive Hours, High Flow/Velocity Cannula (ICD-10-PCS; 2022-03-16)
PROC: 3E043XZ Introduction of Vasopressor into Central Vein, Percutaneous Approach (ICD-10-PCS; principal; 2022-03-18)
PROC: 5A1955Z Respiratory Ventilation, Greater than 96 Consecutive Hours (ICD-10-PCS; 2022-03-18)
PROC: 0BH18EZ Insertion of Endotracheal Airway into Trachea, Via Natural or Artificial Opening Endoscopic (ICD-10-PCS; 2022-03-18)
PROC: 3E03329 Introduction of Other Anti-infective into Peripheral Vein, Percutaneous Approach (ICD-10-PCS; 2022-03-18)
PROC: 5A09357 Assistance with Respiratory Ventilation, Less than 24 Consecutive Hours, Continuous Positive Airway Pressure (ICD-10-PCS; 2022-03-18)
PROC: 02HV33Z Insertion of Infusion Device into Superior Vena Cava, Percutaneous Approach (ICD-10-PCS; 2022-03-23)
PROC: 5A1D70Z Performance of Urinary Filtration, Intermittent, Less than 6 Hours Per Day (ICD-10-PCS; 2022-03-23)
PROC: 30243R1 Transfusion of Nonautologous Platelets into Central Vein, Percutaneous Approach (ICD-10-PCS; 2022-04-02)
PROC: 0BH17EZ Insertion of Endotracheal Airway into Trachea, Via Natural or Artificial Opening (ICD-10-PCS; 2022-04-03)
PROC: 5A1955Z Respiratory Ventilation, Greater than 96 Consecutive Hours (ICD-10-PCS; 2022-04-03)
DX: A41.51 Sepsis due to Escherichia coli [E. coli] (principal); N17.0 Acute kidney failure with tubular necrosis; J96.01 Acute respiratory failure with hypoxia; I50.33 Acute on chronic diastolic (congestive) heart failure; J15.5 Pneumonia due to Escherichia coli; R65.21 Severe sepsis with septic shock; G93.41 Metabolic encephalopathy; K76.7 Hepatorenal syndrome; K76.6 Portal hypertension; I85.10 Secondary esophageal varices without bleeding; I13.0 Hypertensive heart and chronic kidney disease with heart failure and stage 1 through stage 4 chronic kidney disease, or unspecified chronic kidney disease; E87.2 Acidosis; Z16.12 Extended spectrum beta lactamase (ESBL) resistance; E44.0 Moderate protein-calorie malnutrition; G72.81 Critical illness myopathy; Z86.73 Personal history of transient ischemic attack (TIA), and cerebral infarction without residual deficits; K70.31 Alcoholic cirrhosis of liver with ascites; D63.8 Anemia in other chronic diseases classified elsewhere; I11.0 Hypertensive heart disease with heart failure; Z66 Do not resuscitate; Z51.5 Encounter for palliative care; Z96.649 Presence of unspecified artificial hip joint; Z96.659 Presence of unspecified artificial knee joint; Z87.891 Personal history of nicotine dependence; D50.0 Iron deficiency anemia secondary to blood loss (chronic); D69.59 Other secondary thrombocytopenia; Q63.1 Lobulated, fused and horseshoe kidney; N18.2 Chronic kidney disease, stage 2 (mild); N20.0 Calculus of kidney; E87.6 Hypokalemia; R13.13 Dysphagia, pharyngeal phase; L89.152 Pressure ulcer of sacral region, stage 2; R33.9 Retention of urine, unspecified; Z68.28 Body mass index [BMI] 28.0-28.9, adult; R23.3 Spontaneous ecchymoses; I35.1 Nonrheumatic aortic (valve) insufficiency; Z96.0 Presence of urogenital implants; E88.09 Other disorders of plasma-protein metabolism, not elsewhere classified; F10.21 Alcohol dependence, in remission; R53.81 Other malaise; D63.1 Anemia in chronic kidney disease
CPT/HCPCS: 36415; 36600; 71045; 74018; 74230; 76700; 76705; 80048; 80053; 81001; 82270; 82550; 82553; 82805; 82948; 83605; 83735; 83880; 84100; 84300; 84478; 84484; 85025; 85610; 85730; 86021; 86039; 86160; 86225; 86705; 86706; 86850; 86900; 86920; 87040; 87070; 87086; 87186; 87205; 87340; 90962; 93005; 93306; 94003; 94640; 94760; 94799; 97139; 99251; 99284; J0456; J0610; J0692; J0696; J1644; J1940; J2150; J2185; J2250; J2270; J2353; J2354; J2543; J3430; J3475; J3480; J7030; J7040; J7050; J7121; P9016; P9017; P9034; P9047